=== PATIENT | female | born 1935 | race Caucasian/White ===

== ENCOUNTER → 2018-02-01 | Outpatient (CLI) | payer MEDICARE ==
[~2018-02-01] MED LIST: CLONAZEPAM1 MG PO; LEXAPRO10 MG PO; SYNTHROID125 MCG PO; TYLENOL # 31 EA PO
--- NOTE | 2018-02-01 15:54 | Diagnostic Imaging Report ---
PROCEDURE: Frontal and lateral views of the chest. COMPARISON: Chest x-ray of 10/03/[address] dated 07/22/2017 INDICATIONS: COPD, CHEST PAIN FINDINGS: Lines/tubes: None. Lungs: The lungs are hyperinflated. Minimal left basilar subsegmental atelectasis. There is no evidence of pneumonia or pulmonary edema. Pleura: There is no pleural effusion or pneumothorax. Heart and mediastinum: The heart and the mediastinum are normal. Aorta is calcified and tortuous. Bones: Generalized demineralization in this evaluation. Again seen T7 vertebral body compression fracture, unchanged from prior exam. T9 and T11 vertebral body compression deformities which are not seen on prior CT. IMPRESSION: Hyperinflated lungs with flattening of the diaphragms, consistent with history of COPD. No definite focal consolation. T9 and T11 vertebral body compression deformities which are new when compared to CT dated 07/22/17. Dictated by: Vinicio Mayes M.D. on 02/01/2018 at 15:56 Electronically approved by: Vinicio Mayes M.D. on 02/01/2018 at 15:56
== END ==
LOC: RAD 15:21
DX: J44.9 Chronic obstructive pulmonary disease, unspecified (principal)
CPT/HCPCS: 71046

== ENCOUNTER 2018-10-15 01:36 | Inpatient (IN) | payer MEDICARE, OTHER ==
[~2018-10-15] VITALS: Ht 160 cm; Wt 60.9 kg
[2018-10-15] VITALS (16 sets, daily range): BP systolic 98–140; BP diastolic 55–75
--- OUTSIDE RECORDS SUMMARY | 2018-10-15 01:39 | XMS REPORT ---
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 Allergies, Adverse Reactions, Alerts This patient has no known allergies or adverse reactions. Medications This patient has no known medications. Results Test Description Test Time Test Comments Text Results Atomic Results Result Comments CHEST 2 VIEWS [place] [address] Patient Name: VANESSA GHOSH MR #: [id number] : 1935 Age/Sex: 82/F Req #: [id number] Adm Physician: Ordered by: KEVIN RICE MD Report #: [id number] Location: RAD Room/Bed: Procedure: [id number] DX/CHEST 2 VIEWS Exam Date: 02/01/18 Exam Time: 1529 REPORT STATUS: Signed PROCEDURE: Frontal and lateral views of the chest. COMPARISON: Chest x-ray of 10/03/[address] dated 07/22/2017 INDICATIONS: COPD, CHEST PAIN FINDINGS: Lines/tubes: None. Lungs: The lungs are hyperinflated. Minimal left basilar subsegmental atelectasis. There is no evidence of pneumonia or pulmonary edema. Pleura: There is no pleural effusion or pneumothorax. Heart and mediastinum: The heart and the mediastinum are normal. Aorta is calcified and tortuous. Bones: Generalized demineralization in this evaluation. Again seen T7 vertebral body compression fracture, unchanged from prior exam. T9 and T11 vertebral body compression deformities which are not seen on prior CT. IMPRESSION: Hyperinflated lungs with flattening of the diaphragms, consistent with history of COPD. No definite focal consolation. T9 and T11 vertebral body compression deformities which are new when compared to CT dated 07/22/17. Dictated by: Vinicio Selby M.D. on 02/01/2018 at 15:56 Electronically approved by: Vinicio Selby M.D. on 02/01/2018 at 15:56 Dictated By: VINICIO SELBY MD 55 Transcribed By: SAY on 02/01/181555 COPY TO: KEVIN RICE MD LUMBAR, COMPLETE MIN 4VW [place] [address] Patient Name: VANESSA GHOSH MR #: [id number] : 1935 Age/Sex: 82/F Req #: [id number] Adm Physician: KEVIN RICE MD Ordered by: KEVIN RICE MD Report #: [id number] Location: MED/SURG Room/Bed: [facility] Procedure: [id number] DX/SP LUMBAR, COMPLETE MIN 4VW Exam Date: 07/30/17 Exam Time: 1120 REPORT STATUS: Signed PROCEDURE: L-SPINE COMPLETE COMPARISON: CT of the abdomen and pelvis from 07/29/2017 INDICATIONS: LOW BACK PAIN FINDINGS: 5 views of the lumbar spine (AP, lateral, L5-S1 view, and bilateral obliques). The bones are severely demineralized. There are multilevel degenerative changes of the lumbar spine with multilevel moderate disc space narrowing and anterior osteophytes. Severe disc space narrowing is seen at the L5-S1 level. Moderate facet arthrosis of the lower lumbar spine. There is minimal anterolisthesis of L4. Superior endplate changes at the T12 vertebral body are likely chronic and degenerative. There are diffuse vascular calcifications. There are calcified fibroids in the pelvis. CONCLUSION: 1. Multilevel degenerative changes and facet arthrosis of the lumbar spine as above. 2. Chronic appearing superior endplate changes at the T12 vertebral body. This is likely degenerative. Correlate with any point tenderness. Dictated by: Shaun Alvarado M.D. on 07/30/2017 at 11:56 Electronically approved by: Shaun Alvarado M.D. on 07/30/2017 at 11:56 Dictated By: SHAUN ALVARADO MD 1156 Transcribed By: SAY on 07/30/17 1156 COPY TO: KEVIN RICE MD THORACIC SPINE LIMIT [place] [address] Patient Name: VANESSA GHOSH MR #: [id number] : 1935 Age/Sex: 82/F Req #: [id number] Adm Physician: KEVIN RICE MD Ordered by: KEVIN RICE MD Report #: [id number] Location: MED/SURG Room/Bed: [facility] Procedure: [id number] DX/THORACIC SPINE LIMIT Exam Date: 07/30/17 Exam Time: 1120 REPORT STATUS: Signed PROCEDURE: X-RAY THORACIC SPINE, LIMITED COMPARISON: CT of the chest from 07/22/2017 INDICATIONS: BACK PAIN FINDINGS: 2 views of the thoracic spine (AP and lateral). The bones are demineralized. There is a stable compression fracture of the T7 vertebral body with mild retropulsion of fragments. There is a new, severe compression deformity of the T9 vertebral body with about 50% height loss and mild retropulsion of fragments. CONCLUSION: Since the prior CT on 07/22/2017, there is a new, severe compression deformity of the T9 vertebral body with about 50% height loss and mild retropulsion of fragments. Dictated by: Shaun Alvarado M.D. on 07/30/2017 at 12:34 Electronically approved by: Shaun Alvarado M.D. on 07/30/2017 at 12:34 Dictated By: SHAUN ALVARADO MD 1234 Transcribed By: SAY on 07/30/17 1234 COPY TO: KEVIN RICE MD CT ABDOMEN/PELVIS WO [place] [address] Patient Name: VANESSA GHOSH MR #: [id number] : 1935 Age/Sex: 82/F Req #: [id number] [facility] Physician: Ordered by: RIGO FONSECA MD Report #: [id number] Location: ER Room/Bed: Procedure: [id number] CT/CT ABDOMEN/PELVIS WO Exam Date: 07/29/17 Exam Time: 1707 REPORT STATUS: Signed PROCEDURE: CT ABDOMEN AND PELVIS WITHOUT CONTRAST TECHNIQUE: The abdomen and pelvis were scanned utilizing a multidetector helical scanner from the diaphragm to the lesser trochanter. No IV contrast was administered because of ordering physician request. Coronal and sagittal multiplanar reformations were obtained. DLP: 187.6 mGy-cm COMPARISON: None. INDICATIONS: LOWER BACK PAIN FINDINGS: ABSENCE OF INTRAVENOUS CONTRAST DECREASES SENSITIVITY FOR DETECTION OF FOCAL LESIONS AND VASCULAR PATHOLOGY. LOWER THORAX: Lingular and right lower lobe atelectasis. HEPATOBILIARY: No suspicious contour abnormalities. The common bile duct measures 0.9 cm in diameter, upper limits of normal for age. Cholelithiasis. SPLEEN: No splenomegaly. PANCREAS: No suspicious contour abnormalities or ductal dilatation. ADRENALS: Thickening without discrete nodules likely reflecting hyperplasia. KIDNEYS/URETERS: No hydronephrosis or stones. A 0.3 cm hyperattenuating lesion in the interpolar region (series 3 image 61) is indeterminate. Left parapelvic cysts PELVIC ORGANS/BLADDER: Calcified uterine fibroids. Urinary bladder is unremarkable. PERITONEUM / RETROPERITONEUM: No free air or fluid. LYMPH NODES: No lymphadenopathy. VESSELS: Limited evaluation without intravenous contrast. Diffuse moderate atherosclerotic calcifications. No abdominal aortic aneurysm. GI TRACT: No distention or wall thickening. Numerous left colonic diverticula without evidence of diverticulitis. 0.8 cm and 0.4 cm appendicoliths within the otherwise unremarkable appendix. Moderate to large amount of stool in the right colon. BONES AND SOFT TISSUES: Metallic streak artifacts from a left hip prosthesis limits evaluation of the regional structures. Advanced degenerative changes of the right hip. Osseous demineralization. Mild disc space narrowing from L3 through S1. IMPRESSION: 1. Cholelithiasis with prominent CBD at the upper limits of normal for age. Consider correlation with labs and if indicated, MRCP for further evaluation. 2. Otherwise, no acute abnormalities within the limitations of noncontrast study. 3. Left renal 0.3 cm hyperattenuating lesion may represent a hyperdense cyst, although incompletely evaluated without contrast. Recommend renal ultrasound in 6 months. 4. Descending and sigmoid colonic diverticula. 5. Appendoliths without evidence of appendicitis. 6. Calcified uterine fibroids. Dictated by: Javon Ramirez M.D. on 07/29/2017 at 18:05 Electronically approved by: Javon Ramirez M.D. on 07/29/2017 at 18:05 Dictated By: JAVON RAMIREZ MD 6096 Transcribed By: SAY on 07/29/171805 COPY TO: RIGO FONSECA MD CT CHEST WO [place] [address] Patient Name: VANESSA GHOSH MR #: [id number] : 1935 Age/Sex: 82/F Req #: [id number] Adm Physician: Ordered by: KEVIN RICE MD Report #: [id number] Location: CT Room/Bed: Procedure: [id number] CT/CT CHEST WO Exam Date: 07/22/17 Exam Time: 1335 REPORT STATUS: Signed EXAM: CT Chest WITHOUT contrast 07/22/2017 1:23 PM INDICATION: Abnormal chest x-ray. COMPARISON: None. Correlation with chest x-ray dated October 03, 2015. TECHNIQUE: Chest was scanned utilizing a multidetector helical scanner from the lung apex through the level of the adrenal glands without administration of IV contrast. Absence of intravenous contrast decreases sensitivity for detection of lymphadenopathy and vascular pathology. Coronal and sagittal reformations were obtained. Routine protocol was performed. IV CONTRAST: None RADIATION DOSE: Total DLP: 149.04 mGy*cm Estimated effective dose: (DLP x 0.014 x size factor) mSv COMPLICATIONS: None FINDINGS: LINES/ TUBES: None. LUNGS AND AIRWAYS: Mild bilateral upper lobe centrilobular emphysematous changes. 4 mm calcified granuloma in the posterior left upper lobe on image 20. Lingular subsegmental atelectasis. Focal pleural thickening in the lateral mid right hemithorax on image 59 nonspecific. Mild bibasilar pleural-parenchymal scarring. PLEURA: Mild biapical pleural-parenchymal scarring. HEART AND MEDIASTINUM: The thyroid gland is normal. No mediastinal, hilar or axillary lymphadenopathy. The heart is normal in size.. There is no pericardial effusion. Atherosclerotic calcifications of the thoracic aorta and major branches without aneurysmal dilatation. The main pulmonary artery measures 2.9 cm in diameter, within upper limits of normal. Coronary artery calcifications. The right and left pulmonary arteries are mildly ectatic, measuring 2.8 cm and 2.5 cm respectively. UPPER ABDOMEN: Limited non- contrast views of the upper abdomen show no abnormality within the visualized liver, spleen, pancreas, or kidneys. Atherosclerotic secretions of the abdominal aorta. There is mild thickening of the left adrenal gland with an approximately 0.8 cm low-attenuation nodule consistent with small adenoma. BONES: Mild pectus excavatum deformity. Moderate thoracic kyphosis centered at a compression fracture of T7. Generalized osteopenia. SOFT TISSUES: No acute abnormality. IMPRESSION: 1. No evidence of axillary mass or lymphadenopathy as suspected on prior chest radiograph. In retrospect it most likely represented summation of shadows. 2. Mild bilateral centrilobular pulmonary emphysema predominantly involving the upper lobes. 3. Chronic T7 compression fracture. Signed by: Dr. Lucho Martinez M.D. on 07/22/2017 3:34 PM Dictated By: DARNELL MARTINEZ MD, MD 1534 Transcribed By: EDITH on 07/22/17 153 COPY TO: KEVIN RICE MD
[2018-10-15] MEDS ORDERED: PANTOPRAZOLE 40 MG 10ML VIAL IV STA (02:02)
[2018-10-15] MEDS ORDERED: ONDANSETRON HCL INJ 2MG/ML 2ML 2 MG/ML VIAL IV STA ×2 (02:02→04:56)
[2018-10-15] MEDS ORDERED: SODIUM CHLORIDE 0.9% 500ML 500 ML IV ONE ×2 (02:15→08:00)
[2018-10-15 02:22] LABS: BASOPHILS % 0.3 % (0.0-1.0); EOSINOPHILS % 0.3 % (0.0-6.0); HEMATOCRIT 38.8 % (34.2-44.1); HEMOGLOBIN 12.4 g/dL (12.0-16.0); LYMPHOCYTES # (AUTO) 0.6 (1.0-3.2); LYMPHOCYTES % 4.7 % (18.0-39.1); MEAN CORPUSCULAR HEMOGLOBIN 30.1 pg (28-32); MEAN CORPUSCULAR VOLUME 94.2 fL (81-99); MONOCYTES # (AUTO) 1.2 (0.2-0.8); MONOCYTES % 9.4 % (4.4-11.3); NEUTROPHILS # (AUTO) 10.8 (2.1-6.9); NEUTROPHILS % 84.9 % (38.7-80.0); PLATELET COUNT 206 x10e3/uL (140-360); RED BLOOD COUNT 4.12 x10e6/uL (3.6-5.1); RED CELL DISTRIBUTION WIDTH 12.6 % (11.7-14.4)
[2018-10-15 02:28] LABS: BILIRUBIN,URINE NEGATIVE (NEGATIVE); CLARITY,URINE CLEAR (CLEAR); COLOR,URINE YELLOW (YELLOW); KETONES,URINE NEGATIVE (NEGATIVE); LEUKOCYTE ESTERASE ,URINE NEGATIVE (NEGATIVE); NITRITE,URINE NEGATIVE (NEGATIVE); PROTEIN,URINE DIPSTICK NEGATIVE (NEGATIVE); URINE UROBILINOGEN 0.2 mg/dL (0.2 - 1)
[2018-10-15 02:34] LABS: INR 0.87; PROTHROMBIN TIME 12.6 seconds (11.9-14.5)
[2018-10-15 02:35] LABS: PARTIAL THROMBOPLASTIN TIME 25.2 seconds (23.8-35.5)
[2018-10-15 02:38] LABS: BACTERIA,URINE RARE /HPF; EPITHELIAL CELLS,URINE RARE /LPF; RBC,URINE 0-5 /HPF (0-5); WBC,URINE (MAN) 0-5 /HPF (0-5)
[2018-10-15] MEDS ORDERED: DIATRIZOATE MEGL/DIATRIZOA SOD 30 ML BTL PO ONE ×2 (02:40→05:04)
[2018-10-15 02:42] LABS: ALANINE AMINOTRANSFERASE 25 IU/L (0-55); ALBUMIN 3.7 g/dL (3.5-5.0); ALBUMIN/GLOBULIN RATIO 1.2 (0.8-2.0); ALKALINE PHOSPHATASE 104 IU/L (40-150); AMYLASE 35 U/L (25-125); BLOOD UREA NITROGEN 16 mg/dL (7-26); BUN/CREATININE RATIO 19 (6-25); CALCIUM 9.6 mg/dL (8.4-10.2); CARBON DIOXIDE 31 mmol/L (22-29); CHLORIDE 101 mmol/L (98-107); CREATINE KINASE 43 IU/L (29-168); CREATININE, SERUM 0.85 mg/dL (0.57-1.11); EST GLOMERULAR FILTRATION RATE > 60 ML/MIN (60-); GLUCOSE 145 mg/dL (74-118); LIPASE 26 U/L (8-78); MAGNESIUM 1.9 MG/DL (1.3-2.1); SODIUM 139 mmol/L (136-145)
--- NOTE | 2018-10-15 02:43 | NUR ---
RAD AT BS FOR PORTABLE CHEST XRAY PER MD ORDERS
[2018-10-15 03:01] LABS: B-TYPE NATRIURETIC PEPTIDE2 102.6 pg/mL (0-100)
--- NOTE | 2018-10-15 03:13 | Diagnostic Imaging Report ---
EXAM: CHEST SINGLE (PORTABLE), AP 1 view INDICATION: Abdominal pain COMPARISON: None FINDINGS: LINES/TUBES: None LUNGS: Emphysematous changes and nonspecific bilateral reticulonodular changes. Subsegmental atelectasis in the lung bases. PLEURA: No effusions or pneumothorax. HEART AND MEDIASTINUM: Normal size and contour. BONES AND SOFT TISSUES: No acute findings. IMPRESSION: Emphysematous changes and nonspecific bilateral reticulonodular changes. Recommend follow-up PA and lateral view of the chest when clinically feasible. Signed by: Dr. Crissy Henao M.D. on 10/15/2018 3:08 AM
--- NOTE | 2018-10-15 03:19 | NUR ---
PT RESTING IN ROOM WITH EYES CLOSED AND NO S/S DISTRESS NOTED; RESP ARE EVEN AND UNLABORED AT THIS TIME, O2 APPLIED VIA NC AT 2 LPM WITH RESULTING SPO2 100%; PT AWAITING CT SCAN AT THIS TIME
[2018-10-15] MEDS ORDERED: MORPHINE SULFATE INJ 4 MG/ML INJ 1ML ONE (03:27)
[2018-10-15] MEDS ORDERED: MORPHINE SULFATE 2 MG/ML SYR 1ML IV ONE (03:30)
[2018-10-15] MEDS ORDERED: SODIUM CHLORIDE 0.9% 50ML 50 ML ONE (03:30)
[2018-10-15] MEDS ORDERED: IOPAMIDOL 370 MG/ML 200 ML INFUS..BTL INJ ONE (03:30)
--- NOTE | 2018-10-15 04:23 | Diagnostic Imaging Report ---
EXAM: CT ABDOMEN AND PELVIS with IV CONTRAST DATE: 10/15/2018 2:02 AM Time stamp on Exam: 0353 hours INDICATION: Abdominal pain, shortness of breath, constipation COMPARISON: None TECHNIQUE: The abdomen and pelvis were scanned using a multidetector helical scanner. Coronal and sagittal reformations were obtained. Dose modulation, iterative reconstruction, and/or weight based adjustment of the mA/kV was utilized to reduce the radiation dose to as low as reasonably achievable. Routine protocol performed. IV Contrast: 100 cc Isovue-370 Oral Contrast: Gastrografin FINDINGS: LOWER THORAX: Right lower lobe subsegmental atelectasis/scarring. LIVER: No masses BILIARY: Cholelithiasis. No ductal dilation. SPLEEN: No masses PANCREAS: Pancreatic atrophy. ADRENALS: Left adrenal gland hyperplasia. KIDNEYS: Symmetric perfusion. No enhancing masses. No hydronephrosis. Right pelvic kidney. Simple cortical cyst anterior medial aspect of the left kidney superior pole measuring 1.5 cm. Simple left renal parapelvic cysts. GI TRACT: Proximal small bowel wall thickening. Severe sigmoid colon diverticulosis. There is an appendicolith, but the rest of the appendix is poorly visualized due to motion artifact and lack of oral contrast distally. VESSELS: Advanced atherosclerotic changes of the abdominal aorta and branches. PERITONEUM/RETROPERITONEUM: Possible trace fluid in the pelvis. LYMPH NODES: No lymphadenopathy REPRODUCTIVE ORGANS: Uterine fibroids. BLADDER: Decompressed by Rey catheter. SOFT TISSUES: Unremarkable BONES: Left proximal femur surgical hardware. T11 compression fracture with approximately 50% loss of vertebral body height and retrolisthesis posteriorly narrowing the canal. Mild compression fracture L1. Diffuse osteoporosis. IMPRESSION: Exam is limited by small amount of oral contrast and motion artifact. There is a large appendicolith, however the body of the appendix is indistinct due to motion limiting evaluation for appendicitis. If there is high clinical concern for appendicitis, consider repeat exam with additional oral and IV contrast. Other findings as follows: * Thickened proximal small bowel loops could represent enteritis. * Cholelithiasis without CT findings of acute cholecystitis. * Marked sigmoid colon diverticulosis without CT findings of acute diverticulitis. Signed by: Dr. Crissy Henao M.D. on 10/15/2018 4:20 AM
[2018-10-15] MEDS ORDERED: SODIUM CHLORIDE 0.9% 1000ML 1,000 ML ONE (04:50)
[2018-10-15] MEDS ORDERED: SODIUM CHLORIDE 0.9% 100 ML ONE (04:51)
[2018-10-15] MEDS ORDERED: CEFEPIME 1GM/NS 0.9% 50 ML 100 ML IV ONE (04:52)
[2018-10-15] MEDS: SODIUM CHLORIDE 0.9% 1000ML 1,000 ML IV SCH ×3 (05:00→19:06)
[2018-10-15] MEDS: METRONIDAZOLE 500MG/NS 100ML 100 ML IV SCH ×3 (05:05→16:34)
[2018-10-15] MEDS ORDERED: ONDANSETRON HCL INJ 2MG/ML 2ML 2 MG/ML VIAL IV PRN (05:15)
[2018-10-15] MEDS ORDERED: MORPHINE SULFATE 2 MG/ML SYR 1ML IV PRN (05:15)
--- OUTSIDE RECORDS SUMMARY | 2018-10-15 05:16 | XMS REPORT ---
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 Allergies, Adverse Reactions, Alerts This patient has no known allergies or adverse reactions. Medications This patient has no known medications. Results Test Description Test Time Test Comments Text Results Atomic Results Result Comments CT ABDOMEN/PELVIS W 2018-10-15 04:04:00 [place] [address] Patient Name: VANESSA GHOSH MR #: [id number] : 1935 Age/Sex: 83/F Req #: [id number] Adm Physician: Ordered by: DAMIAN GARCIA MD Report #: [id number] Location: ER Room/Bed: Procedure: [id number] CT/CT ABDOMEN/PELVIS W Exam Date: Exam Time: REPORT STATUS: Signed EXAM: CT ABDOMEN AND PELVIS with IV CONTRAST DATE: 10/15/2018 2:02 AM Time stamp on Exam: 0353 hours INDICATION: Abdominal pain, shortness of breath, constipation COMPARISON: None TECHNIQUE: The abdomen and pelvis were scanned using a multidetector helical scanner. Coronal and sagittal reformations were obtained. Dose modulation, iterative reconstruction, and/or weight based adjustment of the mA/kV was utilized to reduce the radiation dose to as low as reasonably achievable. Routine protocol performed. IV Contrast: 100 cc Isovue-370 Oral Contrast: Gastrografin FINDINGS: LOWER THORAX: Right lower lobe subsegmental atelectasis/scarring. LIVER: No masses BILIARY: Cholelithiasis. No ductal dilation. SPLEEN: No masses PANCREAS: Pancreatic atrophy. ADRENALS: Left adrenal gland hyperplasia. KIDNEYS: Symmetric perfusion. No enhancing masses. No hydronephrosis. Right pelvic kidney. Simple cortical cyst anterior medial aspect of the left kidney superior pole measuring 1.5 cm. Simple left renal parapelvic cysts. GI TRACT: Proximal small bowel wall thickening. Severe sigmoid colon diverticulosis. There is an appendicolith, but the rest of the appendix is poorly visualized due to motion artifact and lack of oral contrast distally. VESSELS: Advanced atherosclerotic changes of the abdominal aorta and branches. PERITONEUM/RETROPERITONEUM: Possible trace fluid in the pelvis. LYMPH NODES: No lymphadenopathy REPRODUCTIVE ORGANS: Uterine fibroids. BLADDER: Decompressed by Rey catheter. SOFT TISSUES: Unremarkable BONES: Left proximal femur surgical hardware. T11 compression fracture with approximately 50% loss of vertebral body height and retrolisthesis posteriorly narrowing the canal. Mild compression fracture L1. Diffuse osteoporosis. IMPRESSION: Exam is limited by small amount of oral contrast and motion artifact. There is a large appendicolith, however the body of the appendix is indistinct due to motion limiting evaluation for appendicitis. If there is high clinical concern for appendicitis, consider repeat exam with additional oral and IV contrast. Other findings as follows: * Thickened proximal small bowel loops could represent enteritis. * Cholelithiasis without CT findings of acute cholecystitis. * Marked sigmoid colon diverticulosis without CT findings of acute diverticulitis. Signed by: Dr. Isabella Henao M.D. on 10/15/2018 4:20 AM Dictated By: ISABELLA HENAO MD 9 Transcribed By: EDITH on 10/15/18419 COPY TO: DAMIAN GARCIA MD CHEST SINGLE (PORTABLE) 2018-10-15 03:03:00 [place] [address] Patient Name: VANESSA GHOSH MR #: [id number] : 1935 Age/Sex: 83/F Req #: [id number] Adm Physician: Ordered by: DAMIAN GARCIA MD Report #: [id number] Location: ER Room/Bed: Procedure: [id number] DX/CHEST SINGLE (PORTABLE) Exam Date: 10/15/18 Exam Time: 244 REPORT STATUS: Signed EXAM: CHEST SINGLE (PORTABLE), AP 1 view INDICATION: Abdominal pain COMPARISON: None FINDINGS: LINES/TUBES: None LUNGS: Emphysematous changes and nonspecific bilateral reticulonodular changes. Subsegmental atelectasis in the lung bases. PLEURA: No effusions or pneumothorax. HEART AND MEDIASTINUM: Normal size and contour. BONES AND SOFT TISSUES: No acute findings. IMPRESSION: Emphysematous changes and nonspecific bilateral reticulonodular changes. Recommend follow-up PA and lateral view of the chest when clinically feasible. Signed by: Dr. Isabella Henao M.D. on 10/15/2018 3:08 AM Dictated By: ISABELLA HENAO MD 7 Transcribed By: EDITH on 10/15/18307 COPY TO: DAMIAN GARCIA MD CHEST 2 VIEWS [place] [address] Patient Name: VANESSA GHOSH MR #: [id number] : 1935 Age/Sex: 82/F Req #: [id number] Adm Physician: Ordered by: KEVIN RICE MD Report #: [id number] Location: RAD Room/Bed: Procedure: [id number] DX/CHEST 2 VIEWS Exam Date: 02/01/18 Exam [...] at 15:56 Dictated By: VINICIO SELBY MD 1556 Transcribed By: SAY on 02/01/18 1556 COPY TO: KEVIN RICE MD SP LUMBAR, COMPLETE MIN 4VW [place] [address] Patient Name: VANESSA GHOSH MR #: [id number] : 1935 Age/Sex: 82/F Req #: [id number] Adm Physician: KEVIN RICE MD Ordered by: KEVIN RICE MD Report #: [id number] Location: MED/SURG Room/Bed: [facility] Procedure: [id number] DX/SP LUMBAR, COMPLETE MIN 4VW Exam Date: [...] TO: KEVIN RICE MD THORACIC SPINE LIMIT [place] [address] Patient Name: VANESSA GHOSH MR #: [id number] : 1935 Age/Sex: 82/F Req #: [id number] Adm Physician: KEVIN RICE MD Ordered by: KEVIN RICE MD Report #: [id number] Location: MED/SURG Room/Bed: [facility] Procedure: [id number] DX/THORACIC SPINE LIMIT Exam Date: 07/30/17 Exam [...] COPY TO: KEVIN RICE MD CT ABDOMEN/PELVIS [place] [address] Patient Name: VANESSA GHOSH MR #: [id number] : 1935 Age/Sex: 82/F Req #: [id number] [facility] Physician: Ordered by: RIGO FONSECA MD Report #: [id number] Location: ER Room/Bed: Procedure: [id number] CT/CT ABDOMEN/PELVIS WO Exam Date: 07/29/17 Exam [...] at 18:05 Dictated By: JAVON RAMIREZ MD 05 Transcribed By: SAY on 07/29/171805 COPY TO: RIGO FONSECA MD CT CHEST WO [place] [address] Patient Name: VANESSA GHOSH MR #: [id number] : 1935 Age/Sex: 82/F Req #: [id number] Adm Physician: Ordered by: KEVIN RICE MD Report #: [id number] Location: CT Room/Bed: Procedure: [id number] CT/CT CHEST WO Exam Date: 07/22/17 Exam [...] MD 1534 Transcribed By: EDITH on 07/22/17 1534 COPY TO: KEVIN RICE MD
[2018-10-15] MEDS: ACETAMINOPHEN 1000 MG/100 ML IV PRN ×2 (05:40→20:40)
[2018-10-15] MEDS: CEFEPIME 2 GM/NS 0.9% 100 ML 100 ML IV SCH ×2 (06:10→16:35)
--- NOTE | 2018-10-15 06:10 | NUR ---
pt reported itching and redness to chest after starting cefepime, Dr. Templeton informed and orders received and medications administered.
[2018-10-15] MEDS ORDERED: METHYLPREDNISOLONE SOD SUCC 125 MG/2ML VIAL ONE (06:27)
[2018-10-15] MEDS ORDERED: METHYLPREDNISOLONE SOD SUCC 125 MG/2ML VIAL IV ONE (06:30)
[2018-10-15] MEDS ORDERED: DIPHENHYDRAMINE HCL INJ 50 MG/ML VIAL IV ONE (06:30)
[2018-10-15] MEDS ORDERED: AZTREONAM 2GM/NS 100ML 100 ML IV SCH (06:41)
--- NOTE | 2018-10-15 06:59 | NUR ---
Bed side rounds complete with River ZUNIGA.
--- NOTE | 2018-10-15 07:04 | NUR ---
Report given to oncoming HEMA Regan.
--- NOTE | 2018-10-15 07:21 | NUR ---
Dr. Asim Loza and Dr. Austin at bedside.
--- NOTE | 2018-10-15 07:40 | NUR ---
Spoke with radiology regarding Dr. Benny Loza request for scan to be performed at 0800.
--- NOTE | 2018-10-15 07:44 | NUR ---
Pt report called to Lizette GARRIDO, Lizette reported a room number change.
--- NOTE | 2018-10-15 07:47 | NUR ---
Patient noted to be hypotensive, tahcycardic, recieved 500 cc fluids prior to arrival. Concerns of sepsis, flagyl and azactam given. CXR reviewed, clinically no signs of fluid overload. Will given 1L IVF. Echo ordered. Low threshold for central line. Patient expressed a verbal DNR. Dr. Chin informed of concerns and patient's status at 7:30am.
[2018-10-15] MEDS ORDERED: SODIUM CHLORIDE 0.9% 500ML 500 ML ONE (07:50)
--- NOTE | 2018-10-15 07:51 | NUR ---
Verbal order per Dr. Austin for stat echo. Spoke with Ramon with echo vascular. Understanding verbalized need for stat echo.
--- NOTE | 2018-10-15 07:55 | NUR ---
Spoke with Nadege in radiology, states pt will be brought to department at 0830 for exam.
--- NOTE | 2018-10-15 08:04 | NUR ---
Patient resting comfortably, HR improving. MAP 69. ICU charge nurse and supervisor matrix informed that ER Physician (myself) would respond to any changes if need be in the ICU.
[2018-10-15 08:29] LABS: BASOPHILS % 0.3 % (0.0-1.0); HEMOGLOBIN 11.5 g/dL (12.0-16.0); LYMPHOCYTES # (AUTO) 0.1 (1.0-3.2); LYMPHOCYTES % 1.7 % (18.0-39.1); MEAN CORPUSCULAR HEMOGLOBIN 30.4 pg (28-32); MEAN CORPUSCULAR HGB CONC 31.9 g/dL (31-35); MEAN CORPUSCULAR VOLUME 95.2 fL (81-99); MONOCYTES # (AUTO) 0.5 (0.2-0.8); NEUTROPHILS # (AUTO) 6.9 (2.1-6.9); NEUTROPHILS % 91.7 % (38.7-80.0); PLATELET COUNT 184 x10e3/uL (140-360); RED BLOOD COUNT 3.78 x10e6/uL (3.6-5.1); RED CELL DISTRIBUTION WIDTH 12.8 % (11.7-14.4)
[2018-10-15 08:49] LABS: ALANINE AMINOTRANSFERASE 33 IU/L (0-55); ALBUMIN 3.2 g/dL (3.5-5.0); ALBUMIN/GLOBULIN RATIO 1.3 (0.8-2.0); ALKALINE PHOSPHATASE 77 IU/L (40-150); BLOOD UREA NITROGEN 17 mg/dL (7-26); BUN/CREATININE RATIO 22 (6-25); CALCIUM 8.2 mg/dL (8.4-10.2); CARBON DIOXIDE 24 mmol/L (22-29); CHLORIDE 103 mmol/L (98-107); CREATININE, SERUM 0.78 mg/dL (0.57-1.11); EST GLOMERULAR FILTRATION RATE > 60 ML/MIN (60-); GLUCOSE 114 mg/dL (74-118); SODIUM 136 mmol/L (136-145)
--- NOTE | 2018-10-15 09:17 | Diagnostic Imaging Report ---
EXAMINATION: CT of the abdomen and pelvis without contrast. TECHNIQUE: Spiral CT images of the abdomen and pelvis were performed from the lung bases to the lesser trochanters. No intravenous contrast was given as the patient underwent contrast-enhanced CT earlier 10/15/2018. Oral Gastrografin was administered. Coronal and sagittal reformatted images were obtained. COMPARISON: CT abdomen and pelvis with contrast from 10/15/2018 CLINICAL HISTORY:Concern for appendicitis DISCUSSION: ABSENCE OF INTRAVENOUS CONTRAST DECREASES SENSITIVITY FOR DETECTION OF FOCAL LESIONS AND VASCULAR PATHOLOGY. ABDOMEN/PELVIS: LOWER THORAX: Unchanged right lower lobe atelectasis or scar. Linear lingular opacity suggestive of atelectasis or scar. Coronary artery calcifications. HEPATOBILIARY:No focal hepatic lesion or intrahepatic biliary ductal dilatation. Radiopaque gallstones centrally. No wall thickening or pericholecystic inflammation. SPLEEN: No splenomegaly. PANCREAS: Atrophic parenchyma without focal mass again noted. ADRENALS: Left adrenal fullness without discrete nodule. KIDNEYS/URETERS: Excreted contrast material from prior contrast enhanced CT opacifies the collecting systems, which show no evidence of filling defect. Unchanged simple cyst upper pole left kidney. Inferior displacement of the right kidney also unchanged. PELVIC ORGANS/BLADDER: The urinary bladder is collapsed around a Rye catheter, with air in its nondependent portion. Dystrophic uterine fibroid. PERITONEUM/RETROPERITONEUM: No ascites. No pneumoperitoneum. No extraluminal enteric contrast. LYMPH NODES: No pelvic sidewall, retroperitoneal, or mesenteric lymphadenopathy. VESSELS: Atherosclerotic calcification of the abdominal aorta, branch vessels, and iliac arterial systems, without aneurysmal dilatation. GI TRACT: Extensive sigmoid and descending colon diverticulosis without wall thickening or inflammatory change. As before, there is an appendicolith at the base of the appendix. The appendiceal lumen is unopacified. The distal portion of the appendix is distended to a maximum caliber of approximately 1.2 cm. Minimal adjacent inflammatory change. No small bowel dilatation to suggest obstruction. Enteric contrast material opacifies the proximal colon. BONES AND SOFT TISSUES: Surgical hardware in the proximal left femur. Diffuse osteopenia. No acute osseous abnormality. T11 and L1 compression fractures are unchanged. No focal soft tissue abnormality. IMPRESSION: Appendicolith at the appendiceal base with resultant nonopacification of the appendiceal lumen, and persistent mild distention of the appendiceal body (1.2 cm). Constellation of findings is concerning for early acute appendicitis. Findings were discussed in person with Dr. Asim Loza at 0910 hours on 10/15/2018. Additional findings as previously discussed include cholelithiasis without CT findings of acute cholecystitis, and large bowel diverticulosis without CT findings of diverticulitis. Signed by: Dr. Mayco Kilgore M.D. on 10/15/2018 9:14 AM
[2018-10-15] MEDS ORDERED: BUPIVACAINE 0.25%/EPI 30ML SDV INJ ONE (09:38)
[2018-10-15 10:14] LABS: CREATINE KINASE 27 IU/L (29-168)
--- NOTE | 2018-10-15 10:17 | Consultation ---
DATE OF CONSULTATION: October 15, 2018 PREOP CONSULTATION REASON FOR CONSULTATION: Appendicitis. Patient is a pleasant 83-year-old female who was in her usual state of health until evening after she ate. The patient developed abdominal pain, which she describes as diffuse and later localized into the right lower quadrant and she vomited. Patient was brought to the emergency room by ambulance. In the emergency room, she had a CT scan that revealed changes, which revealed acute appendicitis. I reviewed the CT scan that had been down in the emergency room with the radiologist personally. Specifically, there was no evidence of any acute or other surgical condition. She did have diverticulosis of the left colon, but no evidence of diverticulitis. She did have gallstones, but no evidence of cholecystitis. There was no evidence of bowel obstruction. There was no evidence of abscess formation. There is no evidence of viscus perforation. In short, there was no evidence of any other pathology that would explain her pain, which she felt located in the right lower quadrant. PAST MEDICAL HISTORY: Significant for thyroid condition for which she takes thyroid medicines. She did not know specifically whether it was hypo or hyper. Clinically, she does not seem to be hypothyroid. She denied any heart problems or heart attack, strokes, etc. PAST SURGICAL HISTORY: No previous surgeries intra-abdominal. She has had some orthopedic procedures in the past. FAMILY HISTORY: Noncontributory. SOCIAL HISTORY: She does not smoke or drink. ALLERGIES: SHE IS ALLERGIC TO PENICILLIN. REVIEW OF SYSTEMS: Significant for what has already been stated. She denied any chest pain, shortness of breath, palpitations, weight loss, recta bleeding, etc. PHYSICAL EXAMINATION GENERAL: Reveals an 83-year-old female who is awake and alert. She appears to be oriented and answers questions appropriately. HEENT: No acute process. LUNGS: Clear. HEART: Reveals regular sinus rhythm. ABDOMEN: Moderately distended with mild tenderness diffusely with significant guarding and rebound in the right lower quadrant. RECTAL: Revealed no blood. No stool. NEUROLOGICAL: Nonfocal as it can be ascertained with the patient laying in bed. There is no generalized lymphadenopathy. LABS: White count is 12 with normal lactic acid level. Electrolytes are normal. CT scan results have been already been discussed. The EKG showed no acute changes. Sinus tach. ASSESSMENT: Acute appendicitis, clinically and radiologically. On an 83-year-old female, you always have to be concerned about the possibility of a cecal tumor. However, at this point there is no evidence of that by computerized tomography scan. Of note is the fact that the computerized tomography scan in addition to the findings of a thickened appendix and there is also a fecalith. PLAN: Proceed with laparoscopic appendectomy, possible laparotomy. She agrees and understands, and will proceed with surgical plans as stated. Job#: [id number] ROSELINE
[2018-10-15] MEDS ORDERED: SEVOFLURANE INHAL SOLN 250 ML PEN BTL ONE (10:34)
[2018-10-15] MEDS ORDERED: ONDANSETRON HCL INJ 2MG/ML 2ML 2 MG/ML VIAL ONE (10:34)
[2018-10-15] MEDS ORDERED: DEXAMETHASONE SOD PHOS INJ 4 MG/ML VIAL ONE (10:34)
[2018-10-15] MEDS ORDERED: PROPOFOL IV EMULSION 10 MG/ML 20 ML VIAL ONE (10:34)
[2018-10-15] MEDS ORDERED: LIDOCAINE HCL 2% LOCAL INJ 5 ML SDV VIAL INJ ONE (10:34)
[2018-10-15] MEDS ORDERED: ROCURONIUM BROMIDE 10 MG/ML 5ML VIAL ONE (10:34)
[2018-10-15] MEDS ORDERED: LEVOFLOXACIN 500MG/D5W 100ML 100 ML IV ONE (10:35)
[2018-10-15 11:03] LABS: CREATINE KINASE MB < 1.00 ng/mL (0-4.3)
--- NOTE | 2018-10-15 11:04 | History and Physical ---
HISTORY OF PRESENT ILLNESS: This is an 83-year-old female with a past medical history positive for COPD, history of hypothyroidism, chronic back pain, history of skin cancer. The patient came with abdominal pain, vomiting and fever. She had a CT of the abdomen which was inconclusive for appendicitis. Apparently she had phlebolith in the appendix area. Repeat CT of the abdomen and pelvis was done by Dr. Mane Loza, who is the surgeon on the case. Patient was found to have fever and also hypotension on admission to the emergency room. Started empirically on IV fluids and IV antibiotic. Blood culture and urine culture were sent. REVIEW OF SYSTEMS GENERAL: Patient is sleepy. CARDIOVASCULAR: She denies chest pain or palpitations. RESPIRATORY: No shortness of breath. No cough. GASTROINTESTINAL: She complains of severe abdominal pain and vomiting, no diarrhea. GENITOURINARY: No frequency. No dysuria. ALLERGIES: ALLERGIC TO CEFEPIME, BACTRIM AND PENICILLIN. SOCIAL HISTORY: She does not smoke and does not drink. PAST MEDICAL HISTORY: Positive for COPD, hypothyroidism, skin cancer, back pain. PHYSICAL EXAMINATION VITALS: Blood pressure 109/60, temperature 98.8, heart rate 118 per minute, respiratory rate 14 per minute. Oxygen saturation 97%. HEART: Regular rhythm. Normal S1, S2 sounds. LUNGS: Clear bilaterally. ABDOMEN: Right lower quadrant tenderness. Positive Chairez sign. McBurney sign is positive. No distention. No visceromegaly. EXTREMITIES: No evidence of cyanosis, edema, or trauma. CT of the abdomen showed possible appendicitis, but repeat CT of the abdomen was done because it was not conclusive. She has gallstones also. On the BMP, sodium 139, potassium 4.0, chloride 101, CO2 31, BUN 16, creatinine 0.85, glucose 245. On the CBC, white blood count 12.7; hemoglobin 12.4; hematocrit 38.8; platelet count 206,000. PT 12.6, INR 0.87, PTT 25.2. AST 30, ALT 25, total bilirubin 0.4, alkaline phosphatase 104. FINAL IMPRESSION 1. Septic shock. 2. Possible appendicitis. 3. Vomiting. 4. Chronic obstructive pulmonary disease. 5. Hypothyroidism. PLAN OF TREATMENT: Continue Xopenex q.4 h., Atrovent q.4 h., metronidazole 500 mg IV q.6 h., aztreonam 2 grams IV q.8 h. Continue normal saline at 150 mL an hour; morphine 2 mg IV q.3 h. as needed; Zofran 4 mg IV q.4 h. as needed; Tylenol 1,000 mg IV q.6 h.; Protonix 40 mg IV. We are going to hold on anticoagulation because the patient is going for surgery now by Dr. Mane Loza. Dr. Padilla has been consulted for infectious disease point of view and Dr. Sloan from the pulmonary/critical care because the patient is in critical condition right now with severe sepsis. Case was discussed with the physician in the ER, the nurses, and Dr. Loza. Time spent: 1 hour. Job#: [id number]
[2018-10-15] MEDS: SODIUM CHLORIDE 0.9% 250ML IRRIG IR SCH ×3 (12:15→20:43)
[2018-10-15] MEDS ORDERED: PANTOPRAZOLE 40 MG 10ML VIAL IV SCH ×2 (12:15→12:45)
[2018-10-15] MEDS ORDERED: HYDROMORPHONE 1MG/1ML INJ IV PRN ×3 (12:15→18:15)
[2018-10-15] MEDS ORDERED: DEXTROSE 5%/LACTATED RINGERS 1,000 ML IV SCH (12:31)
[2018-10-15] MEDS ORDERED: HYDROMORPHONE 2MG/ML 2 MG/ML ML IV ONE (13:45)
[2018-10-15] MEDS ORDERED: MEROPENEM 1GM 100 ML IV SCH (14:00)
[2018-10-15] MEDS ORDERED: AZTREONAM IV SCH (14:00)
[2018-10-15] MEDS ORDERED: WATER STERILE IV SCH (14:00)
--- NOTE | 2018-10-15 14:33 | Consultation ---
DATE OF CONSULTATION: October 15, 2018 REASON FOR CONSULTATION: Appendicitis, recommendation antibiotic. HISTORY OF PRESENT ILLNESS: This is an 83-year-old white female, history of COPD, hypothyroidism, chronic back pain, skin cancer comes into [facility] with vomiting, fever, chills, abdominal pain. CAT scan of the abdomen was done, was suggestive for appendicitis. Patient was seen by Dr. Mane Loza. Proceeded with CAT scan. Patient was taken, underwent appendectomy. Infectious disease was asked to see the patient. When the patient first came, she was hypotensive and febrile. She was admitted to intensive care unit. She was started on Azactam, metronidazole, Atrovent, morphine, Zofran. ALLERGIES: PENICILLIN AND BACTRIM. Her cultures are still pending. LABORATORY DATA: White count was 7.53, hemoglobin 11.5. Sodium 136, potassium 4.0, creatinine 0.78. MEDICATION: She is currently on acetaminophen, Dilaudid, metronidazole, meropenem. PHYSICAL EXAMINATION GENERAL: She is currently comfortable in bed, status post surgery. HEENT: She is not icteric. NECK: Supple. CHEST: Clear. COR: S1, S2. ABDOMEN: Soft. IMPRESSION: Sepsis secondary to appendicitis and the patient is allergic to penicillin. Agree with meropenem. Can discontinue metronidazole since I do not think it is adding too much coverage, maybe some anaerobe, but the meropenem will do adequate coverage. Recheck complete blood count. Recheck chemistry panel. Continue supportive care. Other medical problems as above. Will follow with you. Job#: [id number] JUD
[2018-10-15] MEDS: DEXTROSE 5%/LACTATED RINGERS 1,000 ML IV SCH ×2 (14:50→20:15)
--- NOTE | 2018-10-15 14:58 | Operative Report ---
DATE OF PROCEDURE: October 15, 2018 PREOPERATIVE DIAGNOSIS: Acute gangrenous appendicitis. POSTOPERATIVE DIAGNOSIS: Acute gangrenous appendicitis with perforation and generalized peritonitis. PROCEDURE PERFORMED: Attempted laparoscopic cholecystectomy converted to laparotomy and open appendectomy. ANESTHESIA: General endotracheal. ESTIMATED BLOOD LOSS: 100 mL or less. COMPLICATIONS: None. DRAINS: Two 10-mm flat Alberto-Amador drains, one to the wound and one to the right gutter and pelvis. INDICATIONS AND FINDINGS: This is an 83-year-old female admitted complaining of abdominal pain since the evening prior to admission. The patient after eating developed sudden onset of abdominal pain localized mainly in the right lower quadrant. Because of this, she was brought to the emergency room at 4, and I was called to see the patient from the emergency room at 4:30 in the morning after she had a CT scan that revealed changes consistent with acute appendicitis. Because of the history of generalized abdominal pain and because the CAT scan had been done without any oral contrast, we requested that oral contrast be performed. The oral contrast confirmed the findings. It did not show any evidence of obstruction or bowel leak, confirming the presence of acute appendicitis. There were uterine fibroids. Preoperatively, the patient had a history of chronic pain and was taking narcotics and also antidepressants on a chronic basis. I suspect that this patient because of this has had lower abdominal pain longer than what she stated and the acute abdominal pain was the moment when she perforated. When I examined the patient in the emergency room, she was found to have diffuse tenderness with rebound in the right lower quadrant. INTRAOPERATIVE FINDINGS: Acute appendicitis with a perforation of the distal third of the appendix. There was an appendicolith in the proximal third of the appendix. The ascending colon and cecum were covered by the peritoneum. Even though I could see the tip of the appendix, I could not see the ascending colon and cecum. Due to the fact that this patient has advanced age, I felt that it would not be todd to prolong the operative time by attempting to do a laparoscopic appendectomy under these less than ideal circumstances with generalized peritonitis and a cecum that was hidden behind the peritoneum. Because of this, I opened up the patient through a midline incision. The findings are noted above. Stapled appendectomy was performed. DESCRIPTION OF PROCEDURE: With the patient lying on the operative table in the supine position, after administration of general endotracheal anesthesia, she was prepped and draped for laparoscopic appendectomy. We placed an 11-12 trocar and two 5-mm trocars on the right side of the suprapubic region and in the right upper quadrant and then performed the diagnostic laparoscopy. We were not able to identify the cecum and the base of the appendix. There were generalized peritonitis and pus in the pelvis from which culture and sensitivities were taken. At this point, I quickly made the decision not to pursue laparoscopic approach and then opened up the patient through a midline infraumbilical incision. I was able then to mobilize the right colon and ascending colon after incising the peritoneum and the white line of Toldt and then able to exteriorize and mobilize the ascending colon and cecum. The appendix in the proximal third of it was not inflamed. There was an appendicolith in the distal one-third. The insertion of the appendix into the cecum was very close to the ileocecal valve, but I managed to staple across the base of the appendix where it was soft and pliable with the cecum and protect the ileocecal valve. Then the blood supply to the appendix was tied off with #0 Vicryl. We performed copious peritoneal irrigation until all the effluent fluid was clear. We removed all the fibrinous exudate from the small bowel. We ran the small bowel from the ligament of Treitz to the ileocecal valve. There was no perforation. The left colon contained large amounts of diverticula. The transverse colon was very redundant. It was very floppy. The gallbladder was filled with bile, but it was not acutely inflamed. The CAT scan had shown stones. The uterus had a fibroid in the fundus of the uterus, about 3.5 cm. The right ovary was visualized. It was normal. I could not see the left ovary. After we copiously irrigated the abdominal cavity, extracting all the pus and fibrinous exudate, we carefully reinforced the staple line of the appendectomy with 3-0 silk. At this point, we placed a couple of drains, one to drain the right gutter and pelvis and brought it out through a stab wound in the right lower quadrant, secured there with 3-0 silk. We closed the wound in 2 layers using #0 Vicryl for the peritoneum and posterior sheath and 1 running PDS for the anterior sheath. We placed a 10-mm flat Alberto-Amador drain to drain the wound and brought it through the right suprapubic stab wound, secured there with 3-0 silk. We then closed the incision with huang. The sponge and instrument count was pronounced correct. The drains were connected to self-suction. The patient tolerated the procedure well. The family was informed of the intraoperative findings. They are aware that this patient can have a prolonged hospitalization course, and there could be multiple complications due to the severity of the peritonitis and her advanced age. Job#: [id number]
[2018-10-15] MEDS: MEROPENEM 1GM 100 ML IV SCH ×2 (15:06→22:25)
[2018-10-15] MEDS ORDERED: METRONIDAZOLE 500MG/NS 100ML 100 ML IV SCH (18:00)
[2018-10-15] MEDS: HYDROMORPHONE 2MG/ML 2 MG/ML ML IV PRN (22:45)
[2018-10-16] VITALS (24 sets, daily range): BP systolic 89–141; BP diastolic 45–126
[2018-10-16] MEDS: SODIUM CHLORIDE 0.9% 250ML IRRIG IR SCH ×5 (00:15→16:15)
[2018-10-16] MEDS: SODIUM CHLORIDE 0.9% 1000ML 1,000 ML IV SCH ×2 (01:46→08:26)
[2018-10-16] MEDS: HYDROMORPHONE 2MG/ML 2 MG/ML ML IV PRN ×5 (04:08→21:36)
--- NOTE | 2018-10-16 04:10 | Consultation ---
DATE OF CONSULTATION: October 15, 2018 PULMONARY MEDICINE CONSULT REFERRING PHYSICIAN: Dr. Chin. PRIMARY CARE DOCTOR: Dr. Johan Brown. REASON FOR REFERRAL: Sepsis. HISTORY: Ms. Molina is a pleasant 83-year-old female with sepsis. Patient presented to [facility] on October 15, 2018. Patient had abdominal pain. She had associated vomiting. There were fevers up to 103.1 degrees temperature and tachycardia in the 120. Patient had an associated symptom that did not resolve on its own. She presented to the emergency room. CT of the abdomen demonstrated a large appendicolith with thickened proximal small bowel loop, cholelithiasis without CT findings of acute cholecystitis and marked sigmoid colon diverticulosis without CT acute findings. There was associated T11 compression fracture with 50% vertebral height loss. There was also L1 fracture. There were associated clinical findings that suggested very tender abdomen suggestive of acute appendicitis. Patient went to operating room by state surgeon. During surgery, there was attempt at laparoscopic cholecystectomy but it was converted to open laparotomy and open appendectomy. Perforation of the appendix was confirmed. Estimated blood loss was 100 mL. Patient was able to be extubated after surgery and presented to the ICU. PAST MEDICAL HISTORY: Hypothyroidism, skin cancer, chronic back pain, and possible COPD. MEDICATIONS: Medication list reviewed per electronic record. Antibiotics so far were aztreonam and metronidazole. ALLERGIES: CEFEPIME, TRIMETHOPRIM, SULFAMETHOXAZOLE, PENICILLIN. SOCIAL HISTORY: Patient with close family at bedside. No smoking and no drinking per chart. No drugs. She walks with a walker with distance of one house ambulating, although she has a stooped posture. FAMILY HISTORY: Noncontributory. REVIEW OF SYSTEMS: Cannot get as she is under anesthesia. PHYSICAL EXAMINATION VITALS: Currently afebrile, vital signs more stable per electronic record. GENERAL: No acute distress, still obtunded from anesthesia, but spontaneously breathing without ventilator. HEENT: Normocephalic and atraumatic. Throat is midline. NECK: Supple. LUNGS: Bilateral air entry, moderate; few rhonchi. CARDIOVASCULAR: S1 and S2. No murmurs, rubs or gallops. ABDOMEN: Soft and nontender. EXTREMITIES: No clubbing. No cyanosis. There is no edema. INTEGUMENT: No rash. No purpura. LABS: Potassium 4.0, creatinine 0.8. White count 8, hematocrit 36, and platelets 184. IMPRESSION 1. Severe sepsis, perforated appendicitis. 2. Baseline debility. 3. Reported chronic obstructive pulmonary disease. 4. Hypothyroidism. 5. Chronic back pain. 6. History of skin cancer. PLAN: Await final pathology from surgery. For now, give some IV fluids. Patient furthermore will need the antibiotics to be continued. Follow up serial evaluation as she recovers from anesthesia. NPO for now. Local wound care per surgeon. As patient stabilized, we will add full DVT prophylaxis with chemo prophylaxis, not just mechanical. Once better, patient will need some aggressive PT and OT. Thank you very much, Dr. Chin and Dr. Brown, for allowing me the chance to participate in the care of your patient. Please do not hesitate to contact me if I can help in any way. Job#: [id number] CADEN
[2018-10-16] MEDS: DEXTROSE 5%/LACTATED RINGERS 1,000 ML IV SCH ×3 (04:15→20:15)
[2018-10-16 05:28] LABS: BASOPHILS % 0.2 % (0.0-1.0); HEMATOCRIT 33.5 % (34.2-44.1); HEMOGLOBIN 10.5 g/dL (12.0-16.0); LYMPHOCYTES # (AUTO) 0.5 (1.0-3.2); LYMPHOCYTES % 4.1 % (18.0-39.1); MEAN CORPUSCULAR HEMOGLOBIN 30.2 pg (28-32); MEAN CORPUSCULAR HGB CONC 31.3 g/dL (31-35); MEAN CORPUSCULAR VOLUME 96.3 fL (81-99); MONOCYTES # (AUTO) 0.9 (0.2-0.8); MONOCYTES % 7.7 % (4.4-11.3); NEUTROPHILS # (AUTO) 10.6 (2.1-6.9); NEUTROPHILS % 87.8 % (38.7-80.0); PLATELET COUNT 183 x10e3/uL (140-360); RED BLOOD COUNT 3.48 x10e6/uL (3.6-5.1); RED CELL DISTRIBUTION WIDTH 13.2 % (11.7-14.4)
[2018-10-16 05:51] LABS: ALANINE AMINOTRANSFERASE 33 IU/L (0-55); ALBUMIN 2.5 g/dL (3.5-5.0); ALBUMIN/GLOBULIN RATIO 0.9 (0.8-2.0); ALKALINE PHOSPHATASE 61 IU/L (40-150); ANION GAP 12.1 mmol/L (8-16); BLOOD UREA NITROGEN 18 mg/dL (7-26); BUN/CREATININE RATIO 24 (6-25); CALCIUM 8.5 mg/dL (8.4-10.2); CARBON DIOXIDE 24 mmol/L (22-29); CHLORIDE 107 mmol/L (98-107); CREATININE, SERUM 0.74 mg/dL (0.57-1.11); EST GLOMERULAR FILTRATION RATE > 60 ML/MIN (60-); GLUCOSE 111 mg/dL (74-118); POTASSIUM 4.1 mmol/L (3.5-5.1); SODIUM 139 mmol/L (136-145)
[2018-10-16] MEDS: MEROPENEM 1GM 100 ML IV SCH ×3 (06:08→21:28)
--- NOTE | 2018-10-16 06:20 | Diagnostic Imaging Report ---
EXAM: CHEST SINGLE (PORTABLE), AP 1 view INDICATION: Congestive heart failure COMPARISON: AP view of the chest October 15, 2018 FINDINGS: LINES/TUBES: Interval placement of nasal/orogastric tube courses below the diaphragm out of field of view. LUNGS: Emphysematous changes with bilateral reticular nodular changes. PLEURA: Question of trace bilateral pleural effusion HEART AND MEDIASTINUM: Stable appearance. BONES AND SOFT TISSUES: No acute findings. IMPRESSION: No interval change. Signed by: Dr. Crissy Henao M.D. on 10/16/2018 6:17 AM
[2018-10-16] MEDS: LEVOTHYROXINE SODIUM 125 MCG TAB PO SCH (07:30)
[2018-10-16] MEDS: ESCITALOPRAM OXALATE 10 MG TAB PO SCH (07:45)
[2018-10-16] MEDS: ONDANSETRON HCL INJ 2MG/ML 2ML 2 MG/ML VIAL IV PRN ×4 (08:55→21:36)
[2018-10-16] MEDS: PANTOPRAZOLE 40 MG 10ML VIAL IV SCH (09:26)
--- NOTE | 2018-10-16 12:30 | NUR ---
SOCIAL WORK INITIAL ASSESSMENT Hostage Negotiator to bedside to discuss plan of care with patient/family. CM/SW role and care transitions discussed. Anticipated discharge plan discussed along with duration of care. CM/SW discussed patients right to make decisions in care. CM/SW work hours given. Patient lives: IN OWN HOUSE WITH SON KRAIG Admit/Transfer: VIA ED FROM HOME POA/Emergency contact: KRAIG [phone] ALSO MENTIONS DAUGHTER RICHARD Current/Previous Home Health: NONE PCP/Follow-up Care: STATES NOT SURE Current/Previous DME: LEON Other Services: STATES QUIT SMOKING A YEAR AGO Employment Status: RETIRED Areas of Concerns: NONE Referral Needs: NONE Education Needs: NONE IMM/GOMES given and signed (if applicable): NA Goal for discharge: RETURN WITH SON AND FAMILY CM/SW left business card at the bedside with contact information. Name and number was also written on the patients whiteboard. Patient verbalized understanding of discussion. CM will follow-up with ongoing discharge and transition of care needs.
[2018-10-16] MEDS ORDERED: FUROSEMIDE INJ 10 MG/ML 2 ML VIAL IV ONE (15:30)
--- NOTE | 2018-10-16 15:37 | Progress Note ---
DATE: October 16, 2018 INTERNAL MEDICINE PROGRESS NOTE SUBJECTIVE: She underwent an appendectomy yesterday. She is doing much better. PHYSICAL EXAMINATION VITAL SIGNS: Blood pressure 139/126, temperature 99 degrees, heart rate 105 per minute, respiratory rate 20 per minute, and oxygen saturation 97%. HEART: Regular rhythm. Normal S1, S2 sounds. LUNGS: Clear bilaterally. ABDOMEN: Soft. EXTREMITIES: Show no evidence of cyanosis, edema, or trauma. LABS: On the BMP, sodium 139, potassium 4.1, chloride 107, CO2 of 24, BUN 18, creatinine 0.74, glucose 111. CBC; white blood count 12,000, hemoglobin 10.5, hematocrit 33.5, platelet 183,000. PT 12.6, INR 0.87, and PTT 25.2. AST 35, ALT 33, total bilirubin 0.4, alkaline phosphatase 61. FINAL IMPRESSION 1. Septic shock. 2. Appendicitis 3. Vomiting, which is resolved. 4. Chronic obstructive pulmonary disease. 5. Acquired hypothyroidism. PLAN OF TREATMENT: Continue Xopenex and Atrovent q.4 hours. Continue meropenem 500 mg IV q.8 hours. Continue Protonix 40 mg IV daily, Zofran 4 mg IV q.4 hours as needed, D5 lactated Ringer's at 175 mL an hour, citalopram 20 mg daily, levothyroxine 125 mcg daily, and Dilaudid 0.25 mg IV q.3 hours. I discussed the case with the daughter at the bedside and with the patient. Time spent around 60 minutes. Job#: [id number] LYLA
--- NOTE | 2018-10-16 16:18 | NUR ---
Dr. Loza ordered to remove NG tube
--- NOTE | 2018-10-16 16:36 | Progress Note ---
DATE: October 16, 2018 PULMONARY MEDICINE PROGRESS NOTE SUBJECTIVE: Ms. Molina was seen and examined at bedside. She continues to have D5 LR at 125 mL per hour, NG tube in place. In the urine output, she has had 240 mL over 6.5 hours which has picked up from last night. She is alert, oriented x3. NG tube remains in place at this time. REVIEW OF SYSTEMS: No headaches, no GI bleeding. OBJECTIVE VITAL SIGNS: Afebrile. Vital signs noted per electronic record. GENERAL: In no acute distress, alert and calm. HEENT: Normocephalic, atraumatic. NECK: Supple. Throat midline. LUNGS: Bilateral air entry limited but rare rhonchi. CARDIOVASCULAR: S1, S2. No murmur, rubs, or gallops. ABDOMEN: Soft, nontender. EXTREMITIES: No clubbing. No cyanosis. There is no edema. INTEGUMENT: No rash or purpura. LABS: Potassium 4.1, creatinine 0.7, white count 12, hematocrit 34, platelets 183. IMPRESSION 1. Postoperative state, status post open appendectomy. 2. Acute appendicitis with perforation. 3. Weakness. 4. Hypothyroidism. 5. Possible chronic obstructive pulmonary disease. PLAN: Continue bronchodilator therapy by the family. Continue IV fluids. We will give a dose of Lasix today. Continue treating supportively with nausea medicine. NG tube, I believe, is clamped now. We will follow with surgeons for directives here. Patient has made a good recovery so far. Job#: [id number] JUAN
[2018-10-16] MEDS ORDERED: ACETAMINOPHEN 1000 MG/100 ML IV SCH (20:45)
[2018-10-16] MEDS ORDERED: ACETAMINOPHEN 1000 MG/100 ML IV PRN (21:45)
[2018-10-17] VITALS (14 sets, daily range): BP systolic 131–161; BP diastolic 63–87
[2018-10-17] MEDS: ONDANSETRON HCL INJ 2MG/ML 2ML 2 MG/ML VIAL IV PRN ×2 (01:31→08:00)
[2018-10-17] MEDS: HYDROMORPHONE 2MG/ML 2 MG/ML ML IV PRN ×3 (02:07→14:39)
[2018-10-17] MEDS: DEXTROSE 5%/LACTATED RINGERS 1,000 ML IV SCH ×2 (02:38→04:15)
[2018-10-17 04:45] LABS: BASOPHILS % 0.3 % (0.0-1.0); EOSINOPHILS % 0.2 % (0.0-6.0); HEMATOCRIT 35.5 % (34.2-44.1); HEMOGLOBIN 10.8 g/dL (12.0-16.0); LYMPHOCYTES # (AUTO) 0.4 (1.0-3.2); LYMPHOCYTES % 3.2 % (18.0-39.1); MEAN CORPUSCULAR HGB CONC 30.4 g/dL (31-35); MEAN CORPUSCULAR VOLUME 98.6 fL (81-99); MONOCYTES # (AUTO) 0.8 (0.2-0.8); MONOCYTES % 7.6 % (4.4-11.3); NEUTROPHILS # (AUTO) 9.7 (2.1-6.9); NEUTROPHILS % 88.3 % (38.7-80.0); PLATELET COUNT 160 x10e3/uL (140-360); RED CELL DISTRIBUTION WIDTH 13.2 % (11.7-14.4)
[2018-10-17 05:07] LABS: MAGNESIUM 1.7 MG/DL (1.3-2.1); PHOSPHORUS 2.5 MG/DL (2.3-4.7)
[2018-10-17 05:14] LABS: ANION GAP 9.6 mmol/L (8-16); BLOOD UREA NITROGEN 15 mg/dL (7-26); BUN/CREATININE RATIO 21 (6-25); CALCIUM 8.7 mg/dL (8.4-10.2); CARBON DIOXIDE 30 mmol/L (22-29); CHLORIDE 101 mmol/L (98-107); EST GLOMERULAR FILTRATION RATE > 60 ML/MIN (60-); GLUCOSE 115 mg/dL (74-118); POTASSIUM 3.6 mmol/L (3.5-5.1); SODIUM 137 mmol/L (136-145)
[2018-10-17] MEDS: MEROPENEM 1GM 100 ML IV SCH ×3 (06:30→22:23)
[2018-10-17] MEDS: LEVOTHYROXINE SODIUM 125 MCG TAB PO SCH (07:30)
[2018-10-17] MEDS: IPRATROPIUM BROMIDE 0.02% 2.5 ML NEB NEB PRN ×3 (08:18→22:15)
[2018-10-17] MEDS: LEVALBUTEROL HCL SOLN NEBU 0.63 MG/3 ML NEB INH PRN ×3 (08:18→22:15)
[2018-10-17] MEDS: ESCITALOPRAM OXALATE 10 MG TAB PO SCH (09:00)
[2018-10-17] MEDS: PANTOPRAZOLE 40 MG 10ML VIAL IV SCH (09:02)
[2018-10-17 10:31] LABS: BAND NEUTROPHILS % (MANUAL) 1 %; LYMPHOCYTES % (MANUAL) 4 % (19-48); MONOCYTES % (MANUAL) 8 % (3.4-9.0); NEUTROPHILS % (MANUAL) 87 % (40-74); PLATELET ESTIMATE ADEQUATE; PLATELET MORPHOLOGY COMMENT NORMAL; RBC MORPHOLOGY COMMENT NORMAL
--- NOTE | 2018-10-17 11:55 | NUR ---
Patient is cleared to go to a regular floor when cleared by pulmonary and attending per Dr. Loza
[2018-10-17] MEDS: POTASSIUM CHLORIDE 20 MEQ in DEXTROSE 5%/LACTATED RINGERS 1,000 ML IV SCH (13:19)
--- NOTE | 2018-10-17 14:00 | NUR ---
RECEIVED TO RM 113 AAOX3 NO DISTRESS NOTED, UPDATED ON POC VOICED UNDERSTANDING, DENIES PAIN AT THIS TIME, WARD TO BSD WITH YELLOW URINE NOTED, IVF INFUSING TO L AC 22G NO SS OF INFILTRATION NOTED, NO OTHER CO VOICED CALL LIGHT IN REACH WILL CONTINUE TO MONITOR
--- NOTE | 2018-10-17 14:07 | Progress Note ---
DATE: October 17, 2018 INTERNAL MEDICINE PROGRESS NOTE SUBJECTIVE: Patient doing well, tolerating the liquid diet. PHYSICAL EXAM VITAL SIGNS: Blood pressure 140/67, temperature 100 degrees, heart rate 93 per minute, respiratory rate 16 per minute, oxygen saturation 97%. HEART: Shows regular rhythm. Normal S1, S2 sounds. LUNGS: Clear bilaterally. ABDOMEN: Soft. LABS: On the BMP, sodium 137, potassium 3.6, chloride 101, CO2 30, BUN 15, creatinine 0.70, glucose 115. On the CBC, white blood count 10.9, hemoglobin 10.8, hematocrit 35.5, platelet count 160,000. PT 12.6, PTT 25.2, INR 0.87. AST 35, ALT 33, total bilirubin 0.4, alkaline phosphatase 61. FINAL IMPRESSION 1. Sepsis secondary to appendicitis. 2. Appendicitis status post appendectomy. 3. Hypothyroidism. PLAN OF TREATMENT: Continue Xopenex q.4 hours as needed for shortness of breath, Atrovent q.4 hours as needed for shortness of breath, meropenem 500 mg IV q.8 hours. Continue IV fluids. Continue liquid diet as tolerated. The surgeon will decide when to upgrade the diet. Continue levothyroxine 125 mcg daily, Protonix 40 mg daily, Dilaudid 0.25 mg IV q.3 hours as needed for severe pain, Zofran 4 mg IV q.4 hours as needed for vomiting, Tylenol 1000 mg q.6 hours as needed for pain or fever. Case has been discussed with the patient. The patient can be transferred out from the ICU to the medical floor after she has tolerated the diet. Labs have been reviewed. Medications have been reviewed. Time spent around 55 minutes. Job#: [id number]
[2018-10-17] MEDS ORDERED: FUROSEMIDE INJ 10 MG/ML 2 ML VIAL IV ONE (15:00)
--- NOTE | 2018-10-17 15:58 | Progress Note ---
DATE: October 17, 2018 PULMONARY MEDICINE PROGRESS NOTE SUBJECTIVE: Ms. Molina was seen and examined at bedside. She still has a little bit nausea. She was started on clear liquid diet today. No flatus, no bowel movements yet. 3 liters per minute by nasal cannula oxygen. No respiratory distress. She is on IV fluids which is at 100 mL per hour, but now has been decreased 70 mL per hour per nursing. REVIEW OF SYSTEMS: No double vision, no headaches. OBJECTIVE VITAL SIGNS: Afebrile. Vital signs noted per electronic record. GENERAL: In no acute distress, alert and calm. HEENT: Normocephalic, atraumatic. NECK: Supple. Throat midline. LUNGS: Bilateral air entry, rare rhonchi. CARDIOVASCULAR: S1, S2. No murmur, rubs, or gallops. ABDOMEN: Soft, binder on, reportedly nondistended per nurses. EXTREMITIES: No clubbing. No cyanosis. There is only trace edema. INTEGUMENT: No rash. No purpura. LABS: Include potassium 3.6, BUN 15, creatinine 0.7. White count 11, hematocrit 36, platelets 160. IMPRESSION AND PLAN 1. Postoperative state, status post open appendectomy. 2. Acute appendicitis with perforation and treatment for secondary peritonitis. 3. Weakness. 4. Hypothyroidism. 5. History of chronic obstructive pulmonary disease per report. Continue mobilize the patient. Incentive spirometry protocol has been ordered. PT was started working with the patient. She was not able to get up today as she was not feeling up to it yet. Surgery start clear liquid diet. IV fluids have been decreased slightly and will follow up urine output. Recheck electrolytes in the morning. We will follow along closely. Job#: [id number] ANDREW
--- NOTE | 2018-10-17 20:42 | NUR ---
PATIENT HAS A NON FUNCTIONING IV TO THE LEFT AC, IT WAS REMOVED WITH TIP INTACT. IV #22 GAUGE INSERTED TO THE LEFT FOREARM, PATIENT TOLERATING PROCEDURE WELL. IV FLUID INFUSING ORDERED, BED ALARM ON AND CALL LIGHT WITHIN EASY REACH.
--- NOTE | 2018-10-17 21:15 | NUR ---
PATIENT HEARD YELLING OUT CALLING HER FAMILY MEMBER. UPON ASSESSMENT, THE PATIENT STATED "I'M NOT IN A HOSPITAL BUT SOME WAREHOUSE". THE PATIENT WAS REORIENTED BUT SHE INSIST THAT SHE'S NOT IN THE HOSPITAL. SHE C/O PAIN TO THE ABDOMEN, BUT REFUSED TO TAKE ANY MEDICATION UNTIL HER FAMILY GETS TO THE FACILITY. SHE WAS REPOSITION IN BED FOR COMFORT, HEAD OF BED ELEVATED, BED ALARM ON AND CALL LIGHT WITHIN EASY REACH.
--- NOTE | 2018-10-17 21:53 | NUR ---
THE PATIENT'S SON IS ON THE UNIT TO SEE HER, HE'S DEMANDING THAT SHE BE TAKEN OFF THE DILAUDID FOR PAIN AND GIVEN ANOTHER PAIN MEDICATION. CALL PLACED TO DR ARCHER, AWAITING CALL BACK FROM THE DOCTOR.
[2018-10-17] MEDS: ACETAMINOPHEN/CODEINE 300MG - 30MG TAB PO PRN (22:43)
--- NOTE | 2018-10-17 22:43 | NUR ---
PATIENT C/O PAIN TO THE ABDOMEN WITH PAIN SCORE #8, MEDICATED WITH TYLENOL #3 ORDERED. CALL LIGHT WITHIN EASY REACH, FAMILY MEMBERS VISITING WITH THE PATIENT.
[2018-10-17] MEDS: CLONAZEPAM 1 MG TAB PO PRN (23:15)
[2018-10-18] VITALS (7 sets, daily range): BP systolic 120–150; BP diastolic 60–86
[2018-10-18] MEDS: ACETAMINOPHEN 1000 MG/100 ML IV PRN ×3 (01:05→20:56)
--- NOTE | 2018-10-18 03:41 | NUR ---
PATIENT IS SOUNDLY ASLEEP, NO RESPIRATORY DISTRESS OBSERVED. BED ALARM ON, CALL LIGHT WITHIN EASY REACH.
[2018-10-18] MEDS: LEVOTHYROXINE SODIUM 125 MCG TAB PO SCH (06:03)
[2018-10-18] MEDS: MEROPENEM 1GM 100 ML IV SCH ×3 (06:03→21:44)
[2018-10-18] MEDS: ACETAMINOPHEN/CODEINE 300MG - 30MG TAB PO PRN ×2 (06:04→13:24)
[2018-10-18 06:05] LABS: BASOPHILS % 0.3 % (0.0-1.0); EOSINOPHILS # (AUTO) 0.1 (0.0-0.4); EOSINOPHILS % 0.6 % (0.0-6.0); HEMATOCRIT 29.3 % (34.2-44.1); HEMOGLOBIN 9.9 g/dL (12.0-16.0); LYMPHOCYTES # (AUTO) 0.7 (1.0-3.2); LYMPHOCYTES % 6.7 % (18.0-39.1); MEAN CORPUSCULAR HEMOGLOBIN 31.8 pg (28-32); MEAN CORPUSCULAR HGB CONC 33.8 g/dL (31-35); MEAN CORPUSCULAR VOLUME 94.2 fL (81-99); MONOCYTES # (AUTO) 0.9 (0.2-0.8); MONOCYTES % 9.2 % (4.4-11.3); NEUTROPHILS # (AUTO) 8.1 (2.1-6.9); NEUTROPHILS % 82.6 % (38.7-80.0); PLATELET COUNT 194 x10e3/uL (140-360); RED BLOOD COUNT 3.11 x10e6/uL (3.6-5.1); RED CELL DISTRIBUTION WIDTH 13.1 % (11.7-14.4)
--- NOTE | 2018-10-18 06:06 | NUR ---
PATIENT C/O ABDOMINAL PAIN, SHE'S MEDICATED WITH TYLENOL #3 ORDERED. BED ALARM ON, CALL LIGHT WITHIN EASY REACH.
[2018-10-18 06:14] LABS: ANION GAP 8.8 mmol/L (8-16); BLOOD UREA NITROGEN 12 mg/dL (7-26); BUN/CREATININE RATIO 18 (6-25); CALCIUM 8.5 mg/dL (8.4-10.2); CARBON DIOXIDE 32 mmol/L (22-29); CHLORIDE 98 mmol/L (98-107); CREATININE, SERUM 0.66 mg/dL (0.57-1.11); EST GLOMERULAR FILTRATION RATE > 60 ML/MIN (60-); GLUCOSE 99 mg/dL (74-118); MAGNESIUM 1.7 MG/DL (1.3-2.1); POTASSIUM 3.8 mmol/L (3.5-5.1); SODIUM 135 mmol/L (136-145)
[2018-10-18] MEDS ORDERED: CLONAZEPAM 1 MG TAB PO SCH (09:00)
[2018-10-18] MEDS: PANTOPRAZOLE 40 MG 10ML VIAL IV SCH (09:19)
[2018-10-18] MEDS: ESCITALOPRAM OXALATE 10 MG TAB PO SCH (09:19)
[2018-10-18] MEDS: POTASSIUM CHLORIDE 20 MEQ in DEXTROSE 5%/LACTATED RINGERS 1,000 ML IV SCH ×3 (09:19→23:49)
[2018-10-18] MEDS: CLONAZEPAM 1 MG TAB PO PRN ×2 (09:20→21:44)
--- NOTE | 2018-10-18 12:02 | NUR ---
CM SPOKE TO PATIENT AT BEDSIDE REGARDING [facility] PLACEMENT. 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 PATIENT VERBALLY AGREES TO GOING TO [facility]. PATIENT GIVEN CHOICES OF [facility]OSPITALS. PATIENT CHOSE [facility]. CHOICE LETTER SIGNED AND PLACED IN CHART. CLINICAL PICKED UP LIAISON MERYL EDMOND. PENDING INSURANCE AUTHORIZATION TO TRANSFER TO [facility]: [facility] Address: [address], [place] [address] MOT INITIATED AND PLACED ON CHART. FAMILY GIVEN CM CONTACT INFORMATION FOR ANY FURTHER QUESTIONS OR CONCERNS.
[2018-10-18] MEDS: METRONIDAZOLE 500MG/NS 100ML 100 ML IV SCH ×2 (12:17→17:44)
--- NOTE | 2018-10-18 13:32 | NUR ---
Removed a silver ring from her right hand and a gold ring from her left hand and given to the daughter., Daughter placed in her mothers purse.
--- NOTE | 2018-10-18 13:54 | Progress Note ---
DATE: October 18, 2018 PULMONARY MEDICINE PROGRESS NOTE SUBJECTIVE: Ms. Molina was seen and examined at bedside. She continues to have steady progress. Patient is tolerating the clear-liquid diet so far. She still has a lot of abdominal pain. Rey in place with some urine output. The IV fluid D5 LR plus 20 KCl at 100 mL per hour. Patient without new fevers. REVIEW OF SYSTEMS: No headaches, no bleeding. OBJECTIVE VITAL SIGNS: Reviewed per electronic record, stable. HEENT: Normocephalic, atraumatic. NECK: Supple. Throat midline. LUNGS: Bilateral air entry, limited but few rhonchi. CARDIOVASCULAR: S1 and S2. No murmurs, rubs or gallops. ABDOMINAL: Soft, nontender. EXTREMITIES: No clubbing, no cyanosis. There is no edema. INTEGUMENT: No rash. No purpura. LABS: Potassium 3.8, creatinine 0.7. White count 10, hematocrit 29. IMPRESSION AND PLAN 1. Postoperative state, status post open appendectomy. 2. Secondary peritonitis. 3. Weakness. 4. Postoperative ileus. 5. History of chronic obstructive pulmonary disease per report. 6. Thyroid disorder. Patient will resume her thyroid medicines. She should continue nebulized therapy as her family highly encourages and states the high need for it. Continue pain medicines, which have been adjusted slightly. Continue IV antibiotics. Resistance pattern was noted of the wound cultures intraoperatively. Patient's ileus seems appropriate and seems to be recovering as she is so far tolerating the clear diet. Will follow along closely. Job#: [id number] EV
--- NOTE | 2018-10-18 17:53 | NUR ---
ROOM AVAILABLE AT [facility] ROOM NUMBER IS [id number] CELL PHONE TO CALL REPORT IS [phone] NUMBER TO 3RD FLOOD IS [phone]
--- NOTE | 2018-10-18 17:55 | NUR ---
HOLDING TRANSFER AT THIS TIME. MD Benny WARD DOES NOT WANT PT TRANSFERRING UNTIL PT IS TOLERATING A REG DIET AND KRISTY DRAINS ARE OUT. ORDERS RECEIVED
--- NOTE | 2018-10-18 18:42 | NUR ---
PAGED MD Denny RICE FOR ORDERS ON MED FOR SLEEP PER PT REQUEST. AWAITING FOR CALL BACK
--- NOTE | 2018-10-18 20:00 | NUR ---
INITIAL ASSESSMENT COMPLETE, CALL LIGHT IN REACH, PT REPOSITIONED TO RIGHT SIDE, HEELS UP ON PILLOWS, IV INFUSING, WARD DRAINING, MIDLINE INCISION CDI WITH ABDOMINAL BINDER IN PLACE, KRISTY TO RIGHT AND LEFT SIDES DRAINING, VS STABLE, NO DISTRESS NOTED
[2018-10-18] MEDS ORDERED: TEMAZEPAM 15 MG CAP PO PRN (21:30)
[2018-10-19] VITALS: BP 156/81
[2018-10-19 04:00] VITALS: BP 150/73
[2018-10-19] MEDS: ACETAMINOPHEN/CODEINE 300MG - 30MG TAB PO PRN (05:04)
[2018-10-19] MEDS: METRONIDAZOLE 500MG/NS 100ML 100 ML IV SCH ×3 (05:42→11:57)
--- NOTE | 2018-10-19 05:47 | NUR ---
CHANGED DIAPER, PT HAD LIQUID BM, VS STABLE, NOT DISTRESS NOTED, CALL LIGHT IN REACH
[2018-10-19] MEDS: MEROPENEM 1GM 100 ML IV SCH ×2 (06:00→14:54)
[2018-10-19 07:56] VITALS: BP 121/64
[2018-10-19] MEDS: PANTOPRAZOLE 40 MG 10ML VIAL IV SCH (08:29)
[2018-10-19] MEDS: LEVOTHYROXINE SODIUM 125 MCG TAB PO SCH (08:29)
[2018-10-19] MEDS: ESCITALOPRAM OXALATE 10 MG TAB PO SCH (08:29)
[2018-10-19] MEDS: CLONAZEPAM 1 MG TAB PO PRN (08:29)
[2018-10-19 08:30] VITALS: BP 121/64
--- NOTE | 2018-10-19 09:50 | NUR ---
spoke with md aida lawrence who rounded and dc jeyson drains and removed anterior abd dressing (huang dry and intact), placed 4x4 and microfoam tape on areas where jeyson drains where located. states pt can have reg diet for lunch and transfer to [place] after that . orders received
[2018-10-19] MEDS ORDERED: ACETAMINOPHEN 1000 MG/100 ML IV PRN (10:00)
[2018-10-19] MEDS: POTASSIUM CHLORIDE 20 MEQ in DEXTROSE 5%/LACTATED RINGERS 1,000 ML IV SCH (11:11)
[2018-10-19 11:49] VITALS: BP 170/86
--- NOTE | 2018-10-19 13:55 | NUR ---
pt tolerated her lunch. md bernard ok transfer. will call report to marcel at this time
--- NOTE | 2018-10-19 14:08 | Progress Note ---
DATE: October 19, 2018 PULMONARY MEDICINE PROGRESS NOTE SUBJECTIVE: Ms. Molina was seen and examined at bedside. Patient continues to have steady progress. Patient is so far eating solids for the first time. As of yesterday she tolerated her liquid diet. Patient remains very weak. She does have difficulty mobilizing. Labs do not show any instability. REVIEW OF SYSTEMS: No headaches, no bleeding. OBJECTIVE VITAL SIGNS: Afebrile. Vital signs noted per electronic record. GENERALLY: No acute distress, alert and calm. HEENT: Normocephalic, atraumatic. NECK: Supple. Throat midline. LUNGS: Bilateral air entry, limited but rare rhonchi. CARDIOVASCULAR: S1 and S2. No murmurs, rubs or gallops. ABDOMINAL: Soft, nontender. EXTREMITIES: No clubbing, no cyanosis. There is no edema. INTEGUMENT: No rash. No purpura. LABS: BUN 12, creatinine 0.6, potassium 3.8. White count 10, hematocrit 29. IMPRESSION AND PLAN 1. Postoperative state, status post open appendectomy. 2. Acute appendicitis. 3. Secondary peritonitis due to perforation of appendicitis. 4. Weakness. 5. Severe chronic obstructive pulmonary disease. Continue IV antibiotics. Continue increasing diet. Continue to encourage aggressive PT and OT. Patient, if continues to do well, may step down to intermediate facility. Will follow along closely. Job#: [id number] EV
--- NOTE | 2018-10-19 14:21 | NUR ---
called report to tiffani at [facility]. pt is going to room 322
--- NOTE | 2018-10-19 15:18 | NUR ---
pt off unit to [facility] via ambulance
--- NOTE | 2018-12-15 04:10 | Discharge Summary ---
CHIEF COMPLAINT: Abdominal pain, vomiting, and fever. FINAL DIAGNOSES: Appendicitis, sepsis, and urinary tract infection. PROCEDURE: Exploratory laparotomy and open appendectomy. DISPOSITION: LTAC. HOSPITAL COURSE: An 83-year-old female with history of COPD, hypothyroidism, chronic back pain and history of skin cancer, presents to the ER complaining of abdominal pain with vomiting and fever. She underwent workup and review in ER. X-rays were showing inconclusive evidence for appendicitis. I noted that she had a phlebolith in the appendix area. She did have issues with fever, was found to be also hypotensive, started on IV fluids, IV antibiotics. Blood culture and urine cultures were obtained. She was admitted to facility for evaluation of septic shock, possible appendicitis, vomiting, chronic obstructive pulmonary disease, hypothyroidism. She will begin nebulizer treatments. She will be started on Flagyl as well as aztreonam, given IV fluids. The other medications were continued also. We will be obtaining a General Surgery review, Infectious Disease review, Pulmonary review. Consultants let her stay regarding the concern of appendicitis. The patient underwent review by General Surgery. With review of diagnostic studies, the assessment was made of acute appendicitis clinically and radiologically. With an 83-year-old female, you always have to be concerned about the possibility of a cecal tumor; however, at this point there is no evidence of that by CT scan. In addition, these x-ray findings were showing evidence of thickened appendix and there is also a fecalith. We will be scheduling the patient for a laparoscopic appendectomy and possible laparotomy. Infectious Disease following with Dr. Padilla regarding appendicitis, recommending Infectious Disease followup for antibiotic review and with his findings, he states sepsis secondary to appendicitis and the patient is allergic to penicillin. Agree with meropenem. Can discontinue the Flagyl. Pulmonary followup with Dr. Sloan lead to an assessment of severe sepsis, perforated appendicitis, baseline debility, reported chronic obstructive pulmonary disease, hypothyroidism, chronic back pain, history of skin cancer. Recommend adding full DVT prophylaxis. Operative record on 10/15/[address] Loza. Preoperative diagnosis was acute gangrenous appendicitis. Postoperative diagnosis was the same with perforation and generalized peritonitis. Procedure was attempted laparoscopic appendectomy, converted to laparotomy and open appendectomy. The patient tolerated the procedure well, returned to recovery room in good condition. The patient was taken to the surgery suite on admission, underwent the procedure. She returned to ICU following the procedure. She was continued to be maintained on the antibiotics. Her other medications are being maintained as well. She was given acetaminophen for fever and mild pain. She was initially and still on her Flagyl, which was eventually discontinued. Laboratory studies were watched throughout the stay. She continued to be in no acute distress postprocedure. Her diet was being advanced to clear liquids, which she was tolerating well. She was still having some mild issues of lower abdominal pain. She was receiving wound care. She will be requiring further recovery care. Discussions are being made for discharge planning to LTAC facility. Her laboratory studies were showing the leukocytosis had resolved and she was able to be discharged to [facility] on 10/19/2018 in stable condition. IMAGING: She underwent a chest x-ray, which showed findings of emphysematous changes and nonspecific bilateral reticulonodular changes. CT abdomen and pelvis showed a small amount of oral contrast and motion artifact. There was a large appendicolith; however, the body of the appendices is distended due to motion limiting evaluation for appendicitis. If there is high clinical concern for appendicitis, consider repeating the exam, which was performed and reviewing the 2nd study in comparison to the 1st study finding shows appendicolith at the appendiceal base with resultant non-opacification of the appendiceal lumen and persistent mild distention of the appendiceal body. Constellation of findings is concerning for early acute appendicitis. Additional findings were showing cholelithiasis without CT findings of acute cholecystitis, large bowel diverticulosis without CT findings of diverticulitis. Chest x-ray postop shows no interval change. LABORATORY STUDIES: Shows a CBC with initial white cell count of 12,700, values fell to 7000, final study was 9800. Initial hemoglobin was 12.4, had a slow steady decline postprocedure, and final study was 9.9. Platelets were stable. Cardiac enzymes were normal. Chemistries were showing initial stable electrolytes. Electrolytes continued to remain stable throughout the stay. Glucose levels were as high as 371. Urine study on the patient was unremarkable. Cultures from the surgical site grew E coli, sensitivities were conducted, urine studies were noncontributory. The patient responded well postop, was responding well to her medications, but will be requiring further postop recovery care, continuation of her medications i.e. antibiotics, further monitoring of her overall recovery care. Case management was brought in. She was able to be transferred to [facility] for further continuation of care. At that location, she will continue on her current medications, continue on her current diet, continue postsurgical wound care. She will be receiving some PT/OT as well working on her strengthening due to some minor debility. I will be evaluating her status daily, will be monitoring her condition daily as well. Adjustments will be made to her protocols as needed. Dictated by HU Singh Johan Brown MD CC/MODL /[id number]
== END 2018-10-19 15:16 | DRG 853 ==
LOC: ER 01:36 → ERHOLD 05:13 → ICU 08:26 → MED/SURG 10-17 14:29
PROC: 0DTJ0ZZ Resection of Appendix, Open Approach (ICD-10-PCS; principal; 2018-10-15 12:00)
PROC: 0DJD4ZZ Inspection of Lower Intestinal Tract, Percutaneous Endoscopic Approach (ICD-10-PCS; 2018-10-15 12:00)
DX: A41.9 Sepsis, unspecified organism (principal); R65.21 Severe sepsis with septic shock; K35.20 Acute appendicitis with generalized peritonitis, without abscess; K56.7 Ileus, unspecified; N39.0 Urinary tract infection, site not specified; J44.9 Chronic obstructive pulmonary disease, unspecified; E03.9 Hypothyroidism, unspecified; M54.9 Dorsalgia, unspecified; Z85.828 Personal history of other malignant neoplasm of skin; Z88.1 Allergy status to other antibiotic agents; Z88.0 Allergy status to penicillin; K57.30 Diverticulosis of large intestine without perforation or abscess without bleeding; K80.20 Calculus of gallbladder without cholecystitis without obstruction; D25.9 Leiomyoma of uterus, unspecified; R53.81 Other malaise
CPT/HCPCS: 36415; 51700; 71045; 74176; 74177; 80048; 80053; 81001; 82150; 82550; 82553; 82948; 83605; 83690; 83735; 83880; 84100; 84145; 84484; 85025; 85610; 85730; 87040; 87071; 87075; 87086; 87186; 87205; 88304; 93005; 93306; 94640; 96365; 96367; 96374; 96375; 99284; 99285; C1766; J0692; J1100; J1200; J1940; J1956; J2001; J2270; J2405; J2930; J3480; J7030; J7040; J7050; Q9967

== ENCOUNTER 2022-04-30 15:58 | Observation (INO) | payer MEDICARE ==
[~2022-04-30] VITALS: Ht 160 cm; Wt 52.2 kg
[~2022-04-30 15:58] MED LIST changes: +SODIUM CHLORIDE FLUSH 10 ML SYR IV PRN
[2022-04-30 17:19] LABS: BASOPHILS # (AUTO) 0.1 (0.0-0.1); BASOPHILS % 0.3 % (0.0-1.0); EOSINOPHILS # (AUTO) 0.1 (0.0-0.4); EOSINOPHILS % 0.4 % (0.0-6.0); HEMATOCRIT 29.3 % (34.2-44.1); HEMOGLOBIN 8.5 g/dL (12.0-16.0); LYMPHOCYTES # (AUTO) 0.9 (1.0-3.2); LYMPHOCYTES % 4.9 % (18.0-39.1); MEAN CORPUSCULAR HEMOGLOBIN 23.4 pg (28-32); MEAN CORPUSCULAR VOLUME 80.7 fL (81-99); MONOCYTES % 5.4 % (4.4-11.3); NEUTROPHILS # (AUTO) 16.3 (2.1-6.9); NEUTROPHILS % 87.4 % (38.7-80.0); PLATELET COUNT 725 x10e3/uL (140-360); RED BLOOD COUNT 3.63 x10e6/uL (3.6-5.1); RED CELL DISTRIBUTION WIDTH 17.2 % (11.7-14.4)
[2022-04-30 17:22] LABS: CLARITY,URINE SL CLOUDY (CLEAR); COLOR,URINE STRAW (YELLOW); KETONES,URINE NEGATIVE (NEGATIVE); LEUKOCYTE ESTERASE ,URINE NEGATIVE (NEGATIVE); NITRITE,URINE NEGATIVE (NEGATIVE); PROTEIN,URINE DIPSTICK NEGATIVE (NEGATIVE); URINE UROBILINOGEN 0.2 mg/dL (0.2 - 1)
[2022-04-30 17:24] LABS: INR 1.37
[2022-04-30 17:25] LABS: PARTIAL THROMBOPLASTIN TIME 35.1 seconds (23.8-35.5)
[2022-04-30] MEDS ORDERED: LACTATED RINGER'S 1,000 ML INJ ONE (17:30)
[2022-04-30 17:34] LABS: ALANINE AMINOTRANSFERASE 10 IU/L (0-55); ALBUMIN/GLOBULIN RATIO 0.4 (0.8-2.0); ALKALINE PHOSPHATASE 159 IU/L (40-150); ANION GAP 15.1 mmol/L (8-16); BACTERIA,URINE FEW /HPF; BLOOD UREA NITROGEN 34 mg/dL (7-26); BUN/CREATININE RATIO 44 (6-25); CALCIUM 9.2 mg/dL (8.4-10.2); CARBON DIOXIDE 29 mmol/L (22-29); CHLORIDE 99 mmol/L (98-107); CREATININE, SERUM 0.78 mg/dL (0.57-1.11); EPITHELIAL CELLS,URINE FEW /LPF; GLUCOSE 124 mg/dL (74-118); POTASSIUM 5.1 mmol/L (3.5-5.1); SODIUM 138 mmol/L (136-145); WBC,URINE (MAN) 0-5 /HPF (0-5)
[2022-04-30] MEDS ORDERED: LEVOFLOXACIN 750MG/D5W 150ML 150 ML IV STA (18:33)
[2022-04-30] MEDS: Morphine 2mg Syringe 2 MG/ML SYR IV PRN (19:25)
[2022-04-30] MEDS ORDERED: LACTATED RINGER'S 750 ML INJ ONE (19:45)
[2022-04-30] MEDS ORDERED: IOPAMIDOL 370 MG/ML 100 ML INFUS..BTL INJ ONE (20:37)
[2022-04-30] MEDS ORDERED: ACETAMINOPHEN650 MG RC (22:21)
[2022-04-30] MEDS ORDERED: ATIVAN0.5 MG PO ×2 (22:21→22:22)
[2022-04-30] MEDS ORDERED: BISACODYL5 MG PO (22:26)
[2022-04-30 22:30] VITALS: BP 110/69
[2022-04-30] MEDS ORDERED: HYDROXYZINE HCL10 MG PO (22:49)
[2022-04-30] MEDS ORDERED: ABILIFY2 MG PO (22:49)
[2022-04-30] MEDS ORDERED: BUSPIRONE HCL10 MG PO (22:49)
[2022-04-30] MEDS ORDERED: TUMS ULTRA400 MG PO (22:49)
[2022-04-30] MEDS ORDERED: MILK OF MA400 MG/5 M PO (22:49)
[2022-04-30] MEDS ORDERED: LEVSIN0.125 MG PO (22:49)
[2022-04-30] MEDS ORDERED: REMERON15 MG PO (22:49)
[2022-04-30] MEDS ORDERED: ELIQUIS2.5 MG PO (22:49)
[2022-04-30] MEDS ORDERED: LACTULOSE20 GM/30 M PO (22:49)
[2022-04-30] MEDS ORDERED: LIDOCAINE1 EACH TOP (22:49)
[2022-04-30] MEDS ORDERED: SPIRIVA18 MCG INH (22:49)
[2022-04-30] MEDS ORDERED: HYDROCODON-ACE1 EA11 PO (22:49)
[2022-04-30] MEDS ORDERED: ONDANSETRON ODT4 MG PO (22:49)
[2022-04-30] MEDS ORDERED: LEXAPRO20 MG PO (22:49)
[2022-04-30 22:52] VITALS: BP 110/69
[2022-04-30] MEDS ORDERED: MORPHINE (23:04)
[2022-05-01] VITALS (8 sets, daily range): BP systolic 98–127; BP diastolic 49–67
[2022-05-01] MEDS: Morphine 2mg Syringe 2 MG/ML SYR IV PRN ×4 (02:15→15:16)
[2022-05-01 04:56] LABS: BASOPHILS % 0.1 % (0.0-1.0); EOSINOPHILS # (AUTO) 0.1 (0.0-0.4); EOSINOPHILS % 0.3 % (0.0-6.0); LYMPHOCYTES # (AUTO) 0.6 (1.0-3.2); LYMPHOCYTES % 3.5 % (18.0-39.1); MEAN CORPUSCULAR HEMOGLOBIN 23.3 pg (28-32); MEAN CORPUSCULAR HGB CONC 28.5 g/dL (31-35); MEAN CORPUSCULAR VOLUME 81.9 fL (81-99); MONOCYTES # (AUTO) 1.1 (0.2-0.8); MONOCYTES % 6.2 % (4.4-11.3); NEUTROPHILS # (AUTO) 15.3 (2.1-6.9); NEUTROPHILS % 88.5 % (38.7-80.0); PLATELET COUNT 622 x10e3/uL (140-360)
[2022-05-01 05:01] LABS: HEMATOCRIT 22.1 % (34.2-44.1)
[2022-05-01 05:02] LABS: HEMOGLOBIN 6.3 g/dL (12.0-16.0)
[2022-05-01 05:18] LABS: ANION GAP 11.5 mmol/L (8-16); CALCIUM 8.3 mg/dL (8.4-10.2); CREATININE, SERUM 0.62 mg/dL (0.57-1.11); POTASSIUM 4.5 mmol/L (3.5-5.1)
[2022-05-01] MEDS ORDERED: SODIUM CHLORIDE 0.9% 250ML 250 ML IV ONE (05:30)
[2022-05-01] MEDS ORDERED: SODIUM CHLORIDE 0.9% 250ML 0 ML ONE (10:19)
[2022-05-01] MEDS ORDERED: SODIUM CHLORIDE 0.9% 250ML 250 ML ONE (10:37)
[2022-05-01] MEDS ORDERED: SODIUM CHLORIDE 0.9% 1000ML 1,000 ML ONE (10:44)
[2022-05-01] MEDS ORDERED: SODIUM CHLORIDE 0.9% 1000ML 1,000 ML IV ONE (12:45)
[2022-05-01] MEDS ORDERED: ACETAMINOPHEN 650 MG SUPP PR PRN (18:30)
[2022-05-01] MEDS ORDERED: LACTULOSE SYRUP 20 GM/30 ML UDC PO PRN (18:30)
[2022-05-01] MEDS ORDERED: HYOSCYAMINE 0.125 MG TAB PO PRN (18:30)
[2022-05-01] MEDS ORDERED: BISACODYL 5 MG TAB EC PO PRN (18:30)
[2022-05-01] MEDS: LORAZEPAM 0.5 MG TAB PO PRN (18:44)
[2022-05-01] MEDS: HYDROCODONE/APAP 5MG-325MG TAB PO SCH (18:45)
[2022-05-01] MEDS ORDERED: LORAZEPAM INJ 2 MG/ML VIAL IV ONE (18:55)
[2022-05-01] MEDS: HYDROXYZINE HCL 10 MG TAB PO SCH (21:00)
[2022-05-02] MEDS: Morphine 2mg Syringe 2 MG/ML SYR IV PRN (04:25)
[2022-05-02 05:00] VITALS: BP 127/77
[2022-05-02] MEDS ORDERED: LEVOTHYROXINE SODIUM 125 MCG TAB PO SCH (07:30)
[2022-05-02 08:00] VITALS: BP 115/70
[2022-05-02] MEDS: HYDROXYZINE HCL 10 MG TAB PO SCH ×2 (08:32→12:45)
[2022-05-02] MEDS: HYDROCODONE/APAP 5MG-325MG TAB PO SCH (08:33)
[2022-05-02 08:39] VITALS: BP 115/70
[2022-05-02] MEDS ORDERED: LIDOCAINE 4% PATCH TP SCH (09:00)
[2022-05-02] MEDS ORDERED: APIXAB 2.5 MG TABLET PO SCH (09:00)
[2022-05-02] MEDS ORDERED: ESCITALOPRAM OXALATE 10 MG TAB PO SCH (09:00)
[2022-05-02] MEDS ORDERED: COLLAGENASE 5 GM TUBE TP SCH (09:00)
[2022-05-02] MEDS ORDERED: CALCIUM CARBONATE 500 MG CHEWABLE TABS PO SCH (09:00)
[2022-05-02] MEDS: LORAZEPAM 0.5 MG TAB PO PRN (09:50)
[2022-05-02 12:27] VITALS: BP 104/52
== END 2022-05-02 14:25 | disposition hospice, home (50) ==
LOC: ER 16:21 → ERHOLD 18:39 → MED/SURG3 21:56
DX: R09.02 Hypoxemia (principal); J44.9 Chronic obstructive pulmonary disease, unspecified; Z66 Do not resuscitate; R62.7 Adult failure to thrive; E44.0 Moderate protein-calorie malnutrition; Z68.20 Body mass index [BMI] 20.0-20.9, adult; Z86.711 Personal history of pulmonary embolism; F33.9 Major depressive disorder, recurrent, unspecified; K21.9 Gastro-esophageal reflux disease without esophagitis; R41.841 Cognitive communication deficit; Z86.16 Personal history of COVID-19; Z99.81 Dependence on supplemental oxygen; Z79.899 Other long term (current) drug therapy; F03.90 Unspecified dementia, unspecified severity, without behavioral disturbance, psychotic disturbance, mood disturbance, and anxiety; Z20.822 Contact with and (suspected) exposure to COVID-19; L89.150 Pressure ulcer of sacral region, unstageable
CPT/HCPCS: 36415 ×2; 51700; 71045; 71260; 80048; 80053; 81001; 83605 ×2; 83880; 84484; 85025 ×2; 85379; 85610; 85730; 86850; 86900; 86920; 87040; 93005 ×2; 94799 ×3; 97602; 99251; 99284; G0378 ×3; J2270 ×3; J3410 ×2; J7030; J7050; J7121; P9016; Q9967; U0002